=== PATIENT | male | born 1950 | race Two or more races ===

== ENCOUNTER 2019-02-25 13:31 | Emergency (ER) | payer MEDICARE, OTHER ==
[~2019-02-25] VITALS: Ht 175.3 cm; Wt 108.9 kg
[~2019-02-25 13:31] MED LIST: LISI-646; METF-371
[2019-02-25 14:03] VITALS: BP 115/70
[2019-02-25] MEDS ORDERED: KETOROLAC TROMETH 60MG/2ML VIAL IM ONE (15:00)
== END 2019-02-25 15:35 | disposition home or self-care (01) ==
LOC: ER 13:42
DX: G89.29 Other chronic pain (principal); M54.5 Low back pain; M47.816 Spondylosis without myelopathy or radiculopathy, lumbar region
CPT/HCPCS: 72100; 73502; 96372; 99283; J1885

== ENCOUNTER 2019-09-12 17:08 | Emergency (ER) | payer OTHER ==
[~2019-09-12] VITALS: Ht 177.8 cm; Wt 108.9 kg
[2019-09-12 21:18] VITALS: BP 167/72
[2019-09-12] MEDS ORDERED: KETOROLAC TROMETH 60MG/2ML VIAL IM ONE (21:30)
== END 2019-09-12 21:40 | disposition home or self-care (01) ==
LOC: ER 17:08
DX: G89.29 Other chronic pain (principal); M54.9 Dorsalgia, unspecified; M62.838 Other muscle spasm; E11.9 Type 2 diabetes mellitus without complications; I10 Essential (primary) hypertension; Z88.0 Allergy status to penicillin
CPT/HCPCS: 96372; 99283; J1885

== ENCOUNTER 2021-03-03 19:25 | Emergency (ER) | payer OTHER ==
[~2021-03-03] VITALS: Ht 177.8 cm; Wt 106.6 kg
[~2021-03-03 19:25] MED LIST changes: -LISI-646; +LISI20TA28
[2021-03-03 19:26] VITALS: BP 170/50
== END 2021-03-03 21:37 | disposition home or self-care (01) ==
LOC: ER 19:31
DX: M19.012 Primary osteoarthritis, left shoulder (principal); E11.9 Type 2 diabetes mellitus without complications; I10 Essential (primary) hypertension; Z88.0 Allergy status to penicillin
CPT/HCPCS: 73030

== ENCOUNTER 2021-11-19 17:40 | Emergency (ER) | payer OTHER ==
[~2021-11-19] VITALS: Ht 177.8 cm; Wt 94.3 kg
[2021-11-19 19:04] LABS: Basophils # (auto) 0.1 10 ^3/uL (0-0.2); Basophils % (auto) 0.4 % (0.0-2.0); Eosinophils # (auto) 0 10 ^3/uL (0-0.8); Eosinophils % (auto) 0.1 % (0.0-7.0); Hematocrit 44.2 % (41.0-53.0); Hemoglobin 15.1 g/dL (13.5-17.5); Lymphocytes # (auto) 2.6 10 ^3/uL (0.4-5.4); Lymphocytes % (auto) 19.3 % (10.0-50.0); Mean Corpuscular Hemoglobin 28.2 pg (28.0-32.0); Mean Corpuscular Volume 82.8 fL (80.0-100.0); Monocytes # (auto) 0.9 10 ^3/uL (0-1.3); Monocytes % (auto) 6.6 % (0.0-12.0); Neutrophils % (auto) 73.6 % (37.0-80.0); Nucleated Red Blood Cells % 0.1 %; Red Blood Cells 5.34 10^6/uL (4.5-5.90); Red Cell Distribution Width 13.8 % (11.8-14.3); White Blood Cell 13.6 10^3/uL (4.4-10.8)
[2021-11-19 19:17] LABS: Albumin 3.3 g/dL (3.4-5.0); BUN/Creatinine Ratio 8.7; Calcium 8.9 mg/dL (8.5-10.1); Potassium 4.1 mmol/L (3.5-5.1)
[2021-11-19 19:20] LABS: Bilirubin, Total 1.1 mg/dL (0.2-1.0); Total Protein 7.8 g/dL (6.4-8.2)
[2021-11-19] MEDS: DexAMETHasone SOD PHOS 10MG/1ML VIAL INJ IV ONE (19:45)
[2021-11-20 02:06] LABS: Urine Bacteria NONE SEEN /hpf (None Seen); Urine Blood Negative /uL (Negative); Urine Hyaline Cast FEW /lpf (0 - 2); Urine Specific Gravity 1.031 (1.001-1.035); Urine WBC 2 /hpf (0 - 3)
[2021-11-20 03:04] VITALS: BP 156/78
== END 2021-11-20 03:45 | disposition home or self-care (01) ==
LOC: ER 17:40
DX: U07.1 COVID-19 (principal); J18.9 Pneumonia, unspecified organism
CPT/HCPCS: 36415; 71045; 80053; 81001; 85025; 87426; 93005; 96374; 99285; J1100

== ENCOUNTER 2022-04-15 19:10 | Emergency (ER) | payer OTHER ==
[~2022-04-15] VITALS: Ht 177.8 cm; Wt 94.3 kg
[2022-04-15 19:10] VITALS: BP 139/74
[2022-04-15 22:08] LABS: Basophils # (auto) 0.1 10 ^3/uL (0-0.2); Basophils % (auto) 0.8 % (0.0-2.0); Eosinophils # (auto) 0.3 10 ^3/uL (0-0.8); Eosinophils % (auto) 2.2 % (0.0-7.0); Hematocrit 48.4 % (41.0-53.0); Hemoglobin 15.7 g/dL (13.5-17.5); Lymphocytes # (auto) 5.9 10 ^3/uL (0.4-5.4); Lymphocytes % (auto) 47.2 % (10.0-50.0); Mean Corpuscular Hemoglobin 27.9 pg (28.0-32.0); Mean Corpuscular Hgb Conc. 32.4 g/dL (32.0-36.0); Mean Corpuscular Volume 85.9 fL (80.0-100.0); Monocytes # (auto) 0.8 10 ^3/uL (0-1.3); Monocytes % (auto) 6.6 % (0.0-12.0); Neutrophils # (auto) 5.4 10 ^3/uL (1.6-8.6); Neutrophils % (auto) 43.2 % (37.0-80.0); Nucleated Red Blood Cells % 0.1 %; Red Blood Cells 5.63 10^6/uL (4.5-5.90); Red Cell Distribution Width 14.5 % (11.8-14.3); White Blood Cell 12.6 10^3/uL (4.4-10.8)
[2022-04-15 22:26] LABS: Albumin 4.2 g/dL (3.4-5.0); Calcium 9.6 mg/dL (8.5-10.1); Potassium 3.8 mmol/L (3.5-5.1)
[2022-04-15 22:28] LABS: BUN/Creatinine Ratio 12.6
[2022-04-15 22:31] LABS: Bilirubin, Total 0.5 mg/dL (0.2-1.0); Total Protein 8.3 g/dL (6.4-8.2)
[2022-04-15 22:34] LABS: Lactic Acid w/Reflex 4.2 mmol/L (0.4-2.0)
[2022-04-15] MEDS ORDERED: SODIUM CHLORIDE 0.9% 1,000 ML IV ONE (23:15)
[2022-04-15] MEDS ORDERED: LIDO5PAD8 EX (23:36)
== END 2022-04-16 01:38 | disposition home or self-care (01) ==
LOC: ER 19:10
DX: S39.011A Strain of muscle, fascia and tendon of abdomen, initial encounter (principal); E11.9 Type 2 diabetes mellitus without complications; E78.5 Hyperlipidemia, unspecified; I10 Essential (primary) hypertension; Z88.0 Allergy status to penicillin; X58.XXXA Exposure to other specified factors, initial encounter; Y93.89 Activity, other specified; Y92.89 Other specified places as the place of occurrence of the external cause; Y99.8 Other external cause status
CPT/HCPCS: 36415; 74176; 80053; 82150; 83605; 83690; 84484; 85025; 96360; 99284; J7030

== ENCOUNTER 2023-10-22 17:23 | Inpatient (IN) | payer OTHER ==
[~2023-10-22] VITALS: Ht 177.8 cm; Wt 99.1 kg
[~2023-10-22 17:23] MED LIST changes: +LIDO5PAD8 EX; -LISI20TA28; +LISI20TA56
[2023-10-22] MEDS ORDERED: ACETAMINOPHEN 500 MG TAB PO ONE (17:45)
[2023-10-22] MEDS ORDERED: SODIUM CHLORIDE 0.9% 3,600 ML IV ONE (17:45)
[2023-10-22 17:50] VITALS: PULSE 123; RESP 26; O2SAT 95
[2023-10-22] MEDS ORDERED: LORazepam MDV 2MG/ML 10 ML IV ONE (17:57)
[2023-10-22] MEDS ORDERED: LORazepam 2MG/ML-1ML VIAL IV ONE ×2 (18:00→23:00)
[2023-10-22] MEDS ORDERED: ACETAMINOPHEN IV 1000 MG/100ML (10MG/ML) IV ONE (18:00)
[2023-10-22] MEDS ORDERED: levoFLOXacin 750MG 150 ML IV ONE (19:00)
[2023-10-22] MEDS ORDERED: VANCOMYCIN 1GM/200ML 200 ML IV ONE ×2 (19:00→19:45)
[2023-10-22 19:09] LABS: Basophils # (auto) 0.1 10 ^3/uL (0-0.2); Basophils % (auto) 0.5 % (0.0-2.0); Eosinophils # (auto) 0 10 ^3/uL (0-0.8); Eosinophils % (auto) 0.1 % (0.0-7.0); Hematocrit 45.1 % (41.0-53.0); Hemoglobin 14.9 g/dL (13.5-17.5); Lymphocytes # (auto) 1.2 10 ^3/uL (0.4-5.4); Lymphocytes % (auto) 9.3 % (10.0-50.0); Mean Corpuscular Hemoglobin 27.4 pg (28.0-32.0); Mean Corpuscular Hgb Conc. 33.1 g/dL (32.0-36.0); Mean Corpuscular Volume 82.9 fL (80.0-100.0); Monocytes # (auto) 0.4 10 ^3/uL (0-1.3); Monocytes % (auto) 3.1 % (0.0-12.0); Neutrophils # (auto) 11.7 10 ^3/uL (1.6-8.6); Nucleated Red Blood Cells % 0.1 %; Red Blood Cells 5.44 10^6/uL (4.5-5.90); Red Cell Distribution Width 14.2 % (11.8-14.3); White Blood Cell 13.4 10^3/uL (4.4-10.8)
[2023-10-22 19:24] LABS: Urine Epithelial Cast None Seen /hpf (<5)
[2023-10-22 19:26] LABS: INR 1.01 (0.9-1.15); Partial Thromboplastin Time 21.1 SEC (24.5-34.5); Prothrombin Time 10.6 sec (9.3-11.8)
[2023-10-22 19:30] VITALS: PULSE 120; RESP 25; O2SAT 96
[2023-10-22 19:38] LABS: Urine Bacteria NONE SEEN /hpf (None Seen); Urine Blood 1+ /uL (Negative); Urine Clarity Clear (Clear); Urine Color Colorless (Yellow); Urine Protein, UAD 3+ (Negative); Urine Specific Gravity 1.032 (1.001-1.035); Urine Urobilinogen Normal (Negative); Urine WBC 1 /hpf (0 - 3)
[2023-10-22 19:38] LABS: Alanine Aminotransferase 27 U/L (7-40); Alkaline Phosphatase 185 U/L (46-116); Anion Gap 17 (5-15); Aspartate Aminotransferase 21 U/L (13-40); BUN/Creatinine Ratio 13.6 (10.0-20.0); Bilirubin, Total 0.5 mg/dL (0.2-1.0); Blood Urea Nitrogen 15 mg/dL (9-23); Calcium 8.7 mg/dL (8.7-10.4); Carbon Dioxide 20 mmol/L (20-30); Chloride 98 mmol/L (98-107); Glucose 393 mg/dL (74-106); Magnesium 1.7 mg/dL (1.6-2.6); Potassium 4.8 mmol/L (3.5-5.1); Sodium 135 mmol/L (136-145)
[2023-10-22 19:45] LABS: Amphetamine Screen, Urine Neg (NEGATIVE)
[2023-10-22 19:46] LABS: Barbiturate Scree,Urine Neg (NEGATIVE); Benzodiazephine Screen, Urine Neg (NEGATIVE); Cannabinoid Screen, Urine Neg (NEGATIVE); Cocaine Screen, Urine Neg (NEGATIVE); Opiate Scree,Urine Neg (NEGATIVE); Phencyclidine Screen, Urine Neg (NEGATIVE)
[2023-10-22 20:02] LABS: Lactic Acid w/Reflex 2.4 mmol/L (0.4-2.0)
[2023-10-22 20:11] LABS: Blood Alcohol 4.1 mg/dL (<10)
[2023-10-22 20:11] LABS: COVID19 ANTIGEN SOFIA FIA NEGATIVE (NEGATIVE); Rapid Influenza A Negative (Negative); Rapid Influenza B Negative (Negative)
[2023-10-22] MEDS ORDERED: InsuLIN REG 1unit/0.01ml Soln (100units/ml) IV ONE (20:45)
[2023-10-22] MEDS ORDERED: SODIUM CHLORIDE 0.9% 1,000 ML IV SCH (21:00)
[2023-10-22] MEDS ORDERED: DOCUSATE SOD 100 MG CAP PO PRN (21:00)
[2023-10-22] MEDS ORDERED: DEXTROSE (50%) 50ML SYRG IV PRN (21:00)
[2023-10-22] MEDS ORDERED: NITROGLYCERIN 0.4 MG SL TAB SL PRN (21:00)
[2023-10-22] MEDS ORDERED: ONDANSETRON HCL 4 MG/2 ML VIAL IV PRN (21:00)
[2023-10-22] MEDS ORDERED: VANCOMYCIN PER PHARMACY 0 MG IV SCH (21:00)
[2023-10-22] MEDS ORDERED: MORPHINE SULFATE INJ 2 MG/ml SYRG IV PRN (21:00)
[2023-10-22 21:58] LABS: Chloride 95 mmol/L (98-107); Potassium 4.7 mmol/L (3.5-5.1)
[2023-10-22 21:59] LABS: Anion Gap 18 (5-15); Carbon Dioxide 16 mmol/L (20-30)
[2023-10-22 22:00] LABS: Calcium 8.8 mg/dL (8.5-10.1)
[2023-10-22 22:04] LABS: BUN/Creatinine Ratio 9.8 (10.0-20.0); Blood Urea Nitrogen 11 mg/dL (9-23)
[2023-10-22] MEDS ORDERED: hydrALAZINE HCL 20 MG/ML VL IV PRN ×2 (22:15)
[2023-10-22 22:25] LABS: Sodium 129 mmol/L (136-145)
[2023-10-22 22:26] LABS: Glucose 404 mg/dL (74-106)
[2023-10-22] MEDS ORDERED: INSULIN DRIP 100 UNIT/100ML 100 ML IV SCH (23:00)
[2023-10-22] MEDS: hydrALAZINE HCL 20 MG/ML VL IV PRN (23:26)
[2023-10-23] MEDS ORDERED: ACCU-CHEK COMFORT CURVE STRIP VI SCH
[2023-10-23] MEDS ORDERED: InsuLIN REG 1unit/0.01ml Soln (100units/ml) SC SCH
[2023-10-23] MEDS: MAGNESIUM SULFATE 1GM/100ML 100 ML IV SCH ×2 (00:43→01:58)
[2023-10-23 01:05] LABS: Chloride 104 mmol/L (98-107); Potassium 4.5 mmol/L (3.5-5.1)
[2023-10-23 01:06] LABS: Anion Gap 10 (5-15); Carbon Dioxide 21 mmol/L (20-30)
[2023-10-23 01:07] LABS: Calcium 7.7 mg/dL (8.7-10.4)
[2023-10-23 01:11] LABS: BUN/Creatinine Ratio 13.6 (10.0-20.0); Blood Urea Nitrogen 16 mg/dL (9-23); Glucose 363 mg/dL (74-106)
[2023-10-23 01:12] LABS: Sodium 135 mmol/L (136-145)
[2023-10-23] MEDS: ACCU-CHEK COMFORT CURVE STRIP VI SCH ×6 (01:48→18:14)
[2023-10-23] MEDS ORDERED: MAGNESIUM SULFATE 1GM/100ML 100 ML IV ONE (01:57)
[2023-10-23] MEDS ORDERED: LORazepam 2MG/ML-1ML VIAL IV PRN (02:00)
[2023-10-23] MEDS ORDERED: DEXTROSE (50%) 50ML SYRG IV PRN (03:45)
[2023-10-23] MEDS ORDERED: SODIUM CHLORIDE 0.9% 1,000 ML IV SCH (05:00)
[2023-10-23] MEDS ORDERED: VANCOMYCIN 1GM/200ML 200 ML IV ONE (06:00)
[2023-10-23 06:16] LABS: Basophils # (auto) 0.1 10 ^3/uL (0-0.2); Basophils % (auto) 0.4 % (0.0-2.0); Eosinophils # (auto) 0 10 ^3/uL (0-0.8); Eosinophils % (auto) 0.1 % (0.0-7.0); Hematocrit 37.1 % (41.0-53.0); Hemoglobin 12.4 g/dL (13.5-17.5); Lymphocytes # (auto) 3.1 10 ^3/uL (0.4-5.4); Lymphocytes % (auto) 21.6 % (10.0-50.0); Mean Corpuscular Hemoglobin 27.5 pg (28.0-32.0); Mean Corpuscular Hgb Conc. 33.3 g/dL (32.0-36.0); Mean Corpuscular Volume 82.6 fL (80.0-100.0); Monocytes # (auto) 1.5 10 ^3/uL (0-1.3); Monocytes % (auto) 10.4 % (0.0-12.0); Neutrophils # (auto) 9.7 10 ^3/uL (1.6-8.6); Neutrophils % (auto) 67.5 % (37.0-80.0); Nucleated Red Blood Cells % 0.1 %; Red Blood Cells 4.49 10^6/uL (4.5-5.90); Red Cell Distribution Width 14.5 % (11.8-14.3); White Blood Cell 14.3 10^3/uL (4.4-10.8)
[2023-10-23] MEDS: InsuLIN REG 1unit/0.01ml Soln (100units/ml) SC SCH ×3 (06:21→18:14)
[2023-10-23 06:26] LABS: Anion Gap 10 (5-15); Calcium 8.1 mg/dL (8.7-10.4); Carbon Dioxide 23 mmol/L (20-30); Chloride 104 mmol/L (98-107); Potassium 3.9 mmol/L (3.5-5.1); Sodium 137 mmol/L (136-145)
[2023-10-23 06:32] LABS: BUN/Creatinine Ratio 12.3 (10.0-20.0); Blood Urea Nitrogen 16 mg/dL (9-23)
[2023-10-23 06:34] LABS: Glucose 257 mg/dL (74-106)
[2023-10-23 09:30] LABS: Anion Gap 9 (5-15); Carbon Dioxide 22 mmol/L (20-30); Chloride 106 mmol/L (98-107); Potassium 4.2 mmol/L (3.5-5.1); Sodium 137 mmol/L (136-145)
[2023-10-23 09:31] LABS: Calcium 8.3 mg/dL (8.5-10.1)
[2023-10-23 09:36] LABS: BUN/Creatinine Ratio 12.7 (10.0-20.0); Blood Urea Nitrogen 17 mg/dL (9-23); Glucose 290 mg/dL (74-106)
[2023-10-23] MEDS: ENOXAPARIN SOD 40 MG/0.4 ML SYRINGE SC SCH (09:46)
[2023-10-23] MEDS: levoFLOXacin 500MG 100 ML IV SCH (09:47)
[2023-10-23] MEDS ORDERED: VANCOMYCIN PER PHARMACY 0 MG IV SCH (10:00)
[2023-10-23] MEDS ORDERED: hydrALAZINE HCL 20 MG/ML VL IV PRN (10:00)
[2023-10-23] MEDS: SODIUM CHLORIDE 0.9% 1,000 ML IV SCH ×2 (10:02→18:02)
[2023-10-23 13:32] LABS: Chloride 107 mmol/L (98-107); Potassium 4.1 mmol/L (3.5-5.1); Sodium 136 mmol/L (136-145)
[2023-10-23 13:33] LABS: Anion Gap 5 (5-15); Calcium 8.4 mg/dL (8.5-10.1); Carbon Dioxide 24 mmol/L (20-30)
[2023-10-23 13:38] LABS: BUN/Creatinine Ratio 10.9 (10.0-20.0); Blood Urea Nitrogen 14 mg/dL (9-23); Glucose 285 mg/dL (74-106)
[2023-10-23] MEDS: VANCOMYCIN 1GM/200ML 200 ML IV SCH (17:00)
[2023-10-23 17:43] LABS: Anion Gap 6 (5-15); Carbon Dioxide 25 mmol/L (20-30); Chloride 107 mmol/L (98-107); Potassium 3.8 mmol/L (3.5-5.1); Sodium 138 mmol/L (136-145)
[2023-10-23 17:44] LABS: Calcium 8.3 mg/dL (8.5-10.1)
[2023-10-23 17:49] LABS: BUN/Creatinine Ratio 13.2 (10.0-20.0); Blood Urea Nitrogen 15 mg/dL (9-23); Glucose 202 mg/dL (74-106)
[2023-10-23 19:30] VITALS: PULSE 73; RESP 20; O2SAT 99
[2023-10-24] MEDS: ACCU-CHEK COMFORT CURVE STRIP VI SCH ×3 (00:06→12:55)
[2023-10-24] MEDS: ACETAMINOPHEN 325 MG TAB PO PRN ×2 (00:12→06:15)
[2023-10-24] MEDS: InsuLIN REG 1unit/0.01ml Soln (100units/ml) SC SCH ×3 (00:13→12:59)
[2023-10-24] MEDS: hydrALAZINE HCL 20 MG/ML VL IV PRN (02:03)
[2023-10-24] MEDS: SODIUM CHLORIDE 0.9% 1,000 ML IV SCH ×2 (02:05→10:00)
[2023-10-24 02:06] VITALS: PULSE 76; RESP 18; O2SAT 99
[2023-10-24] MEDS: VANCOMYCIN 1GM/200ML 200 ML IV SCH ×2 (03:11→12:55)
[2023-10-24 05:19] VITALS: BP 138/62; PULSE 74; RESP 18; TEMP 98.2; O2SAT 96
[2023-10-24] MEDS ORDERED: LEVO750T8 PO ×3 (07:12→07:14)
[2023-10-24 07:46] LABS: Basophils # (auto) 0 10 ^3/uL (0-0.2); Basophils % (auto) 0.3 % (0.0-2.0); Eosinophils # (auto) 0.2 10 ^3/uL (0-0.8); Eosinophils % (auto) 1.8 % (0.0-7.0); Hematocrit 37.6 % (41.0-53.0); Hemoglobin 12.6 g/dL (13.5-17.5); Lymphocytes # (auto) 2.5 10 ^3/uL (0.4-5.4); Lymphocytes % (auto) 23.1 % (10.0-50.0); Mean Corpuscular Hgb Conc. 33.5 g/dL (32.0-36.0); Mean Corpuscular Volume 83.8 fL (80.0-100.0); Monocytes % (auto) 8.7 % (0.0-12.0); Neutrophils # (auto) 7.2 10 ^3/uL (1.6-8.6); Neutrophils % (auto) 66.1 % (37.0-80.0); Red Blood Cells 4.49 10^6/uL (4.5-5.90); Red Cell Distribution Width 14.9 % (11.8-14.3); White Blood Cell 10.9 10^3/uL (4.4-10.8)
[2023-10-24 08:00] VITALS: PULSE 74; PULSE 75; RESP 19; O2SAT 96
[2023-10-24] MEDS ORDERED: DICY20TA PO (08:39)
[2023-10-24] MEDS ORDERED: SEMA3TAB2 PO (08:40)
[2023-10-24] MEDS ORDERED: GLIP10TA9 PO (08:40)
[2023-10-24] MEDS ORDERED: BENZ100C97 PO (08:41)
[2023-10-24] MEDS ORDERED: METO25TA5 PO (08:41)
[2023-10-24 08:42] LABS: Alanine Aminotransferase 25 U/L (7-40); Albumin 3.2 g/dL (3.2-4.8); Alkaline Phosphatase 114 U/L (46-116); Anion Gap 11 (5-15); Aspartate Aminotransferase 63 U/L (13-40); BUN/Creatinine Ratio 15.4 (10.0-20.0); Blood Urea Nitrogen 14 mg/dL (9-23); Calcium 8.2 mg/dL (8.7-10.4); Carbon Dioxide 21 mmol/L (20-30); Chloride 105 mmol/L (98-107); Glucose 182 mg/dL (74-106); Potassium 3.4 mmol/L (3.5-5.1); Sodium 137 mmol/L (136-145); Total Protein 5.8 g/dL (5.7-8.2)
[2023-10-24] MEDS ORDERED: CLAR1TAB21 PO (08:42)
[2023-10-24] MEDS ORDERED: ATOR20TA PO (08:43)
[2023-10-24] MEDS ORDERED: LOSA25TA15 PO (08:44)
[2023-10-24] MEDS ORDERED: METF-370 PO (08:44)
[2023-10-24] MEDS ORDERED: POTASSIUM CHL 20 Meq TABLET PO ONE (08:45)
[2023-10-24 08:50] LABS: Basophils # (auto) 0.1 10 ^3/uL (0-0.2); Basophils % (auto) 0.5 % (0.0-2.0); Eosinophils # (auto) 0.2 10 ^3/uL (0-0.8); Eosinophils % (auto) 1.7 % (0.0-7.0); Hematocrit 37.5 % (41.0-53.0); Hemoglobin 12.5 g/dL (13.5-17.5); Lymphocytes # (auto) 2.4 10 ^3/uL (0.4-5.4); Mean Corpuscular Hemoglobin 27.7 pg (28.0-32.0); Mean Corpuscular Hgb Conc. 33.3 g/dL (32.0-36.0); Mean Corpuscular Volume 83.2 fL (80.0-100.0); Monocytes # (auto) 0.8 10 ^3/uL (0-1.3); Neutrophils # (auto) 6.9 10 ^3/uL (1.6-8.6); Neutrophils % (auto) 66.8 % (37.0-80.0); Red Blood Cells 4.51 10^6/uL (4.5-5.90); Red Cell Distribution Width 14.6 % (11.8-14.3); White Blood Cell 10.4 10^3/uL (4.4-10.8)
[2023-10-24 08:53] LABS: Chloride 106 mmol/L (98-107); Potassium 3.5 mmol/L (3.5-5.1); Sodium 136 mmol/L (136-145)
[2023-10-24 08:54] LABS: Anion Gap 9 (5-15); Carbon Dioxide 21 mmol/L (20-30)
[2023-10-24 08:55] LABS: Calcium 8.1 mg/dL (8.7-10.4)
[2023-10-24 08:59] LABS: Blood Urea Nitrogen 15 mg/dL (9-23); Glucose 192 mg/dL (74-106)
[2023-10-24 09:04] LABS: Bilirubin, Total 0.3 mg/dL (0.2-1.0)
[2023-10-24 09:11] VITALS: BP 164/65; PULSE 74; RESP 19; TEMP 98; O2SAT 96
[2023-10-24] MEDS: ENOXAPARIN SOD 40 MG/0.4 ML SYRINGE SC SCH (10:16)
[2023-10-24] MEDS: levoFLOXacin 500MG 100 ML IV SCH (10:16)
[2023-10-24 13:00] VITALS: BP 149/78; PULSE 82; RESP 17; TEMP 97.9; O2SAT 98
[2023-10-24 13:58] VITALS: BP 140/67; PULSE 82; RESP 19; TEMP 97.9; O2SAT 94
== END 2023-10-24 15:03 | disposition home health service (06) | DRG 871 ==
LOC: EDBD 17:23 → ER 17:23 → TELE 21:11 → TELE-EAST 10-23 23:53
PROVIDERS: ADMIT Hospitalist; ATTEND Hospitalist
DX: A41.9 Sepsis, unspecified organism (principal); E11.10 Type 2 diabetes mellitus with ketoacidosis without coma; J18.9 Pneumonia, unspecified organism; G93.41 Metabolic encephalopathy; J96.00 Acute respiratory failure, unspecified whether with hypoxia or hypercapnia; N17.9 Acute kidney failure, unspecified; E78.5 Hyperlipidemia, unspecified; I10 Essential (primary) hypertension; Z20.822 Contact with and (suspected) exposure to COVID-19; Z78.1 Physical restraint status; Z88.0 Allergy status to penicillin
CPT/HCPCS: 36415; 36600; 70450; 71045; 71250; 72125; 74176; 80048; 80053; 80202; 80307; 80320; 81001; 82010; 82140; 82805; 82962; 83605; 83735; 83880; 84100; 84443; 84484; 85025; 85610; 85730; 86850; 86900; 86901; 87040; 87426; 87804; 93005; 93306; G0378; J0131; J1815; J1956

== ENCOUNTER 2024-02-19 14:20 | Inpatient (IN) | payer OTHER ==
[~2024-02-19] VITALS: Ht 177.8 cm; Wt 100.2 kg
[~2024-02-19 14:20] MED LIST changes: +ATOR20TA PO; +BENZ100C97 PO; +CLAR1TAB21 PO; +DICY20TA PO; +GLIP10TA9 PO; +LEVO750T8 PO; +LIDO5PAD12 EX; -LIDO5PAD8 EX; +LOSA-533 PO; +METF-370 PO; +METO25TA5 PO; +SEMA3TAB2 PO
[2024-02-19 15:10] VITALS: PULSE 63; RESP 17; O2SAT 97
[2024-02-19 15:49] LABS: Basophils # (auto) 0.1 10 ^3/uL (0-0.2); Basophils % (auto) 1.1 % (0.0-2.0); Eosinophils # (auto) 0.4 10 ^3/uL (0-0.8); Eosinophils % (auto) 3.8 % (0.0-7.0); Hematocrit 43.6 % (41.0-53.0); Hemoglobin 14.5 g/dL (13.5-17.5); Lymphocytes # (auto) 4.1 10 ^3/uL (0.4-5.4); Mean Corpuscular Hemoglobin 27.2 pg (28.0-32.0); Mean Corpuscular Hgb Conc. 33.2 g/dL (32.0-36.0); Monocytes # (auto) 0.5 10 ^3/uL (0-1.3); Monocytes % (auto) 5.4 % (0.0-12.0); Neutrophils # (auto) 4.8 10 ^3/uL (1.6-8.6); Neutrophils % (auto) 48.7 % (37.0-80.0); Nucleated Red Blood Cells % 0.2 %; Red Blood Cells 5.33 10^6/uL (4.5-5.90); Red Cell Distribution Width 14.4 % (11.8-14.3); White Blood Cell 9.9 10^3/uL (4.4-10.8)
[2024-02-19 15:53] LABS: Alanine Aminotransferase 10 U/L (7-40); Alkaline Phosphatase 84 U/L (46-116); Anion Gap 8 (5-15); Aspartate Aminotransferase 20 U/L (13-40); BUN/Creatinine Ratio 13.3 (10.0-20.0); Bilirubin, Total 0.4 mg/dL (0.2-1.0); Blood Urea Nitrogen 16 mg/dL (9-23); Calcium 9.5 mg/dL (8.5-10.1); Carbon Dioxide 25 mmol/L (20-30); Chloride 104 mmol/L (98-107); Glucose 255 mg/dL (74-106); Potassium 3.9 mmol/L (3.5-5.1); Sodium 137 mmol/L (136-145); Total Protein 7.1 g/dL (5.7-8.2)
[2024-02-19 15:57] LABS: Partial Thromboplastin Time 29.2 SEC (24.5-34.5); Prothrombin Time 10.6 sec (9.3-11.8)
[2024-02-19] MEDS: IOHEXOL 350 MG/ML 100ML IJ ONE (16:02)
[2024-02-19] MEDS: ASPirin 325 MG TAB PO ONE (16:45)
[2024-02-19] MEDS: hydrALAZINE HCL 20 MG/ML VL IV ONE (17:48)
[2024-02-19] MEDS ORDERED: NITROGLYCERIN 0.4 MG SL TAB SL PRN (18:15)
[2024-02-19] MEDS ORDERED: MORPHINE SULFATE INJ 2 MG/ml SYRG IV PRN (18:15)
[2024-02-19] MEDS: ATORVASTATIN 20 MG TAB PO ONE (18:39)
[2024-02-19] MEDS: hydrALAZINE HCL 20 MG/ML VL IV PRN (19:59)
[2024-02-19] MEDS: METOPROLOL TARTRATE 25 MG TAB PO ONE (21:36)
[2024-02-19] MEDS: METOPROLOL TARTRATE 25 MG TAB PO SCH (21:43)
[2024-02-19 23:19] VITALS: BP 184/86; PULSE 77; RESP 18; TEMP 98.6; O2SAT 98
[2024-02-20] VITALS (7 sets, daily range): BP systolic 134–187; BP diastolic 78–86; PULSE 67–78; RESP 16–20; TEMP 97.5–98.6; O2SAT 96–98
[2024-02-20] MEDS ORDERED: METF-370 PO (01:28)
[2024-02-20] MEDS ORDERED: IBUP-1456 PO (01:28)
[2024-02-20] MEDS ORDERED: ATOR-507 PO (01:28)
[2024-02-20] MEDS ORDERED: METO-158 PO (01:28)
[2024-02-20 07:05] LABS: Basophils # (auto) 0.1 10 ^3/uL (0-0.2); Basophils % (auto) 0.7 % (0.0-2.0); Eosinophils # (auto) 0.5 10 ^3/uL (0-0.8); Eosinophils % (auto) 5.2 % (0.0-7.0); Hematocrit 42.6 % (41.0-53.0); Lymphocytes # (auto) 2.9 10 ^3/uL (0.4-5.4); Lymphocytes % (auto) 32.4 % (10.0-50.0); Mean Corpuscular Hemoglobin 27.7 pg (28.0-32.0); Mean Corpuscular Hgb Conc. 32.8 g/dL (32.0-36.0); Mean Corpuscular Volume 84.4 fL (80.0-100.0); Monocytes # (auto) 0.6 10 ^3/uL (0-1.3); Monocytes % (auto) 6.6 % (0.0-12.0); Neutrophils # (auto) 4.9 10 ^3/uL (1.6-8.6); Neutrophils % (auto) 55.1 % (37.0-80.0); Nucleated Red Blood Cells % 0.2 %; Red Blood Cells 5.04 10^6/uL (4.5-5.90); Red Cell Distribution Width 14.3 % (11.8-14.3); White Blood Cell 8.9 10^3/uL (4.4-10.8)
[2024-02-20 07:44] LABS: Albumin 3.4 g/dL (3.2-4.8); Alkaline Phosphatase 69 U/L (46-116); Anion Gap 10 (5-15); Aspartate Aminotransferase 24 U/L (13-40); BUN/Creatinine Ratio 10.6 (10.0-20.0); Blood Urea Nitrogen 11 mg/dL (9-23); Carbon Dioxide 21 mmol/L (20-30); Chloride 106 mmol/L (98-107); Glucose 251 mg/dL (74-106); Potassium 3.6 mmol/L (3.5-5.1); Sodium 137 mmol/L (136-145)
[2024-02-20 07:46] LABS: Bilirubin, Total 0.6 mg/dL (0.2-1.0); Total Protein 6.2 g/dL (5.7-8.2)
[2024-02-20 07:47] LABS: Alanine Aminotransferase < 9 U/L (7-40)
[2024-02-20] MEDS: LOSARTAN POTASSIUM 25 MG TAB PO SCH (09:27)
[2024-02-20] MEDS: HYDROcodone-ACET 10/325MG TAB PO ONE (14:11)
[2024-02-20] MEDS ORDERED: DEXTROSE (50%) 50ML SYRG IV PRN (15:00)
[2024-02-20 15:13] LABS: Triglycerides 288 mg/dL (< 150)
[2024-02-20 15:14] LABS: LDL Cholesterol 108 mg/dL (< 100)
[2024-02-20 15:15] LABS: Cholesterol 188 mg/dL (< 200); HDL Cholesterol 38 mg/dL (40-59)
[2024-02-20] MEDS: ACCU-CHEK COMFORT CURVE STRIP VI SCH (16:45)
[2024-02-20] MEDS: InsuLIN REG 1unit/0.01ml Soln (100units/ml) SC SCH (16:47)
[2024-02-20] MEDS: ASPirin 81 mg TAB PO SCH (18:11)
[2024-02-20] MEDS: ATORVASTATIN 20 MG TAB PO SCH (21:21)
[2024-02-21] VITALS (7 sets, daily range): BP systolic 131–192; BP diastolic 56–93; PULSE 66–87; RESP 18–19; TEMP 97.6–98.2; O2SAT 94–98
[2024-02-21] MEDS ORDERED: ASPI-325 PO (09:52)
[2024-02-21] MEDS ORDERED: ATOR-47 PO (09:52)
[2024-02-21] MEDS ORDERED: CLOP75TA28 PO (09:53)
[2024-02-21] MEDS: CLOPIDOGREL BISULFATE 75 MG TAB PO SCH (10:00)
[2024-02-21 13:28] LABS: Magnesium 1.7 mg/dL (1.6-2.6)
[2024-02-22] VITALS (16 sets, daily range): BP systolic 122–205; BP diastolic 69–94; PULSE 68–84; RESP 14–20; TEMP 97.4–98.4; O2SAT 94–100
[2024-02-22 11:55] LABS: Alanine Aminotransferase 11 U/L (7-40); Alkaline Phosphatase 80 U/L (46-116); Anion Gap 6 (5-15); BUN/Creatinine Ratio 10.3 (10.0-20.0); Blood Urea Nitrogen 11 mg/dL (9-23); Calcium 9.3 mg/dL (8.5-10.1); Carbon Dioxide 24 mmol/L (20-30); Chloride 107 mmol/L (98-107); Glucose 261 mg/dL (74-106); Potassium 3.8 mmol/L (3.5-5.1); Sodium 137 mmol/L (136-145)
[2024-02-22 11:56] LABS: Albumin 3.7 g/dL (3.2-4.8); Aspartate Aminotransferase 12 U/L (13-40)
[2024-02-22 11:57] LABS: Bilirubin, Total 0.6 mg/dL (0.2-1.0); Total Protein 6.6 g/dL (5.7-8.2)
[2024-02-22] MEDS: LIDOCAINE VISCOUS 2% 15ML UD PO ONE (12:14)
[2024-02-22] MEDS: MIDAZOLAM HCL 2MG/2ML 2ml VIAL (1mg/ml) IV ONE (12:15)
[2024-02-22] MEDS: fentaNYL CITRATE 100 MCG/2 ML VL IV ONE (12:16)
[2024-02-22] MEDS: MIDAZOLAM HCL 2MG/2ML 2ml VIAL (1mg/ml) ONE (12:20)
[2024-02-22 12:38] LABS: Basophils # (auto) 0.1 10 ^3/uL (0-0.2); Hemoglobin 14.3 g/dL (13.5-17.5); Lymphocytes # (auto) 3.3 10 ^3/uL (0.4-5.4); Mean Corpuscular Hemoglobin 26.8 pg (28.0-32.0); Mean Corpuscular Hgb Conc. 32.7 g/dL (32.0-36.0); Red Blood Cells 5.33 10^6/uL (4.5-5.90); Red Cell Distribution Width 14.3 % (11.8-14.3)
[2024-02-22 12:40] LABS: Basophils % (auto) 0.9 % (0.0-2.0); Eosinophils # (auto) 0.3 10 ^3/uL (0-0.8); Eosinophils % (auto) 2.5 % (0.0-7.0); Hematocrit 43.7 % (41.0-53.0); Lymphocytes % (auto) 30.1 % (10.0-50.0); Mean Corpuscular Volume 82.1 fL (80.0-100.0); Monocytes # (auto) 0.6 10 ^3/uL (0-1.3); Monocytes % (auto) 5.5 % (0.0-12.0); Neutrophils # (auto) 6.6 10 ^3/uL (1.6-8.6); White Blood Cell 10.9 10^3/uL (4.4-10.8)
[2024-02-22] MEDS ORDERED: DEXTROSE (50%) 50ML SYRG IV PRN (14:45)
[2024-02-22] MEDS: INSULIN LANTUS (GLARGINE) 1 /0.01ml (100units/ml) SC ONE (15:00)
[2024-02-22] MEDS ORDERED: METF-370 PO (16:21)
[2024-02-22] MEDS ORDERED: LOSA-535 PO (16:25)
[2024-02-22] MEDS ORDERED: INSU1INJ19 SC (16:42)
[2024-02-22] MEDS ORDERED: INSU100I4 SC (16:50)
[2024-02-22] MEDS ORDERED: BLOO1KIT60 XX (16:51)
[2024-02-22] MEDS ORDERED: INSU32MI9 XX (16:52)
[2024-02-22] MEDS: InsuLIN REG 1unit/0.01ml Soln (100units/ml) SC SCH (17:24)
[2024-02-22] MEDS: ACCU-CHEK COMFORT CURVE STRIP VI SCH (17:24)
[2024-02-22] MEDS ORDERED: InsuLIN REG 1unit/0.01ml Soln (100units/ml) SC SCH (22:00)
== END 2024-02-22 18:45 | disposition home or self-care (01) | DRG 65 ==
LOC: ER 14:20 → TELE 18:19 → TELE-WESTW 22:02 → OBSVTOIN 23:06 → INTOOBSV 23:06 → OBSVTOIN 02-21 23:06
PROVIDERS: ADMIT Student in an Organized Health Care Education/Training Program; ATTEND Student in an Organized Health Care Education/Training Program
PROC: B24BZZ4 Ultrasonography of Heart with Aorta, Transesophageal (ICD-10-PCS; principal; 2024-02-22)
DX: I63.9 Cerebral infarction, unspecified (principal); D84.9 Immunodeficiency, unspecified; G45.3 Amaurosis fugax; G81.94 Hemiplegia, unspecified affecting left nondominant side; E11.9 Type 2 diabetes mellitus without complications; I10 Essential (primary) hypertension; E78.5 Hyperlipidemia, unspecified; F17.200 Nicotine dependence, unspecified, uncomplicated; G89.29 Other chronic pain; R29.705 NIHSS score 5; I70.0 Atherosclerosis of aorta; Z88.0 Allergy status to penicillin; Z79.84 Long term (current) use of oral hypoglycemic drugs; Z83.3 Family history of diabetes mellitus; Z79.899 Other long term (current) drug therapy; Z79.02 Long term (current) use of antithrombotics/antiplatelets; Z79.82 Long term (current) use of aspirin; Z82.49 Family history of ischemic heart disease and other diseases of the circulatory system
CPT/HCPCS: 36415; 70450; 70496; 70551; 71045; 80053; 80061; 82962; 83036; 83735; 83880; 84484; 85025; 85610; 85730; 93005; 93306; 93312; 93886; 96374; 97110; 97116; 97163; 97530; 99152; G0378; J1815; J2250

== ENCOUNTER 2024-02-26 14:38 | Emergency (ER) | payer OTHER ==
[~2024-02-26] VITALS: Ht 180.3 cm; Wt 98.0 kg
[~2024-02-26 14:38] MED LIST changes: +ASPI-325 PO; +ATOR-47 PO; -ATOR20TA PO; -BENZ100C97 PO; +BLOO1KIT60 XX; -CLAR1TAB21 PO; +CLOP75TA28 PO; -DICY20TA PO; +INSU100I4 SC; +INSU1INJ19 SC; +INSU32MI9 XX; -LEVO750T8 PO; -LIDO5PAD12 EX; -LISI20TA56; -LOSA-533 PO; +LOSA-535 PO; -METF-371; +METO-158 PO; -METO25TA5 PO; -SEMA3TAB2 PO
[2024-02-26] MEDS: InsuLIN REG 1unit/0.01ml Soln (100units/ml) SC ONE (15:00)
[2024-02-26] MEDS ORDERED: CLON0.1T PO (15:06)
[2024-02-26 15:52] VITALS: BP 129/67; PULSE 83; RESP 16; TEMP 98.7; O2SAT 97
== END 2024-02-26 15:55 | disposition home or self-care (01) ==
LOC: ER 14:38
DX: E11.65 Type 2 diabetes mellitus with hyperglycemia (principal); I10 Essential (primary) hypertension; E78.5 Hyperlipidemia, unspecified; Z86.73 Personal history of transient ischemic attack (TIA), and cerebral infarction without residual deficits; Z88.0 Allergy status to penicillin; Z79.899 Other long term (current) drug therapy
CPT/HCPCS: 82962

== ENCOUNTER 2024-03-29 18:31 | Emergency (ER) | payer OTHER ==
[~2024-03-29] VITALS: Ht 177.8 cm; Wt 97.8 kg
[~2024-03-29 18:31] MED LIST changes: +CLON0.1T PO
[2024-03-29 19:17] LABS: Basophils # (auto) 0.1 10 ^3/uL (0-0.2); Basophils % (auto) 0.6 % (0.0-2.0); Eosinophils # (auto) 0.3 10 ^3/uL (0-0.8); Eosinophils % (auto) 2.7 % (0.0-7.0); Hematocrit 40.5 % (41.0-53.0); Hemoglobin 13.6 g/dL (13.5-17.5); Lymphocytes # (auto) 4.6 10 ^3/uL (0.4-5.4); Lymphocytes % (auto) 38.1 % (10.0-50.0); Mean Corpuscular Hemoglobin 27.5 pg (28.0-32.0); Mean Corpuscular Hgb Conc. 33.7 g/dL (32.0-36.0); Mean Corpuscular Volume 81.8 fL (80.0-100.0); Monocytes # (auto) 0.7 10 ^3/uL (0-1.3); Monocytes % (auto) 5.6 % (0.0-12.0); Neutrophils # (auto) 6.4 10 ^3/uL (1.6-8.6); Nucleated Red Blood Cells % 0.1 %; Red Blood Cells 4.95 10^6/uL (4.5-5.90); Red Cell Distribution Width 14.6 % (11.8-14.3); White Blood Cell 12.1 10^3/uL (4.4-10.8)
[2024-03-29 19:24] LABS: Chloride 103 mmol/L (98-107); Sodium 139 mmol/L (136-145)
[2024-03-29 19:25] LABS: Anion Gap 11 (5-15); Carbon Dioxide 25 mmol/L (20-30)
[2024-03-29 19:30] LABS: BUN/Creatinine Ratio 14.1 (10.0-20.0); Blood Urea Nitrogen 18 mg/dL (9-23); Glucose 249 mg/dL (74-106)
[2024-03-29 19:49] VITALS: BP 145/67; PULSE 63; RESP 20; O2SAT 98
[2024-03-29 20:22] LABS: Base Excess -0.4 mmol/L (-2.0-2.0)
== END 2024-03-30 00:32 | disposition left against medical advice (07) ==
LOC: ER 18:31
DX: I10 Essential (primary) hypertension (principal); E11.65 Type 2 diabetes mellitus with hyperglycemia; E78.5 Hyperlipidemia, unspecified; Z86.73 Personal history of transient ischemic attack (TIA), and cerebral infarction without residual deficits; Z88.0 Allergy status to penicillin; Z79.899 Other long term (current) drug therapy
CPT/HCPCS: 36415; 36600; 71045; 80048; 82010; 82805; 82962; 83880; 84484; 85025

== ENCOUNTER 2024-12-05 17:27 | Inpatient (IN) | payer MEDICARE, OTHER ==
[~2024-12-05] VITALS: Ht 177.8 cm; Wt 111.1 kg
--- NOTE | 2024-12-05 18:13 | ED.PDOC ---
HPI Comments [place]: HPI: Poor Historian. HPI: 74 y/o M, presents to the ED for CC of dyspnea and leg swelling and hypertension. Patient states, that he went to 's walk-in clinic today for bilateral leg swelling and symptoms of shortness of breath when he was relayed to the ED for a further evaluation due to his hypertension. Patient's blood pressure at 's walk in clinic read at 210/80. Patient comments on, forgetting to take his blood medication this morning and is non-compliant with his diuretics. Patient's blood sugar reading in triage read at 424 and 416. Patient denies fatigue, weakness, nausea, vomiting, or diarrhea. No other symptoms or modifying factors at this time. Initial Vital Signs: Temp : 98.3 BP: 200/83 HR:87 RR: 20 SpO2: 97 Past Medical History: AL, CVA, DM, HTN, LIPIDS Past Surgical History: KNEES Social History: Denies smoking, ETOH, or drug use. Medications: PLAVIX METFORMIN' ATROVASTIN ALIPIZIDE CLONIDINE INSULIN LOSARTAN ASA 81 Allergies: NKDA REVIEW OF SYSTEMS: CONSTITUTIONAL: Denies acute: fever, diaphoresis, chills, HEAD: Denies acute: headache, photophobia Eyes: Denies acute: Double vision, vision loss, eye pain, eye discharge. EARS: Denies acute: tinnitus, hearing loss, ear discharge, ear pain, THROAT: Denies acute: sore throat, swelling, difficulty swallowing , pain with swallowing, change in voice. NECK: Denies acute: neck pain, neck swelling, stiff neck. HEART: Denies acute : chest pain, palpitations, LUNGS: Denies acute: , wheezing, cough, hemoptysis ABDOMEN: Denies acute: abdominal pain, Nausea, Vomiting, diarrhea, melena , hematemesis, hematochezia SKIN: Denies acute: rash, redness, lesions, itchiness. EXTREMITIES: Denies acute: calf pain, numbness, tingling, weakness, denies pain in extremity. Denies acute: Low back pain. Neuro: Denies acute: focal neurological deficit, motor or sensory focal neurological deficit, tremors, seizure like activity, confusion, dizziness, change in mental status, loss of bowel or bladder function, cauda equina like symptoms. : Denies acute: dysuria, hematuria, flank pain, increase in urinary frequency. PSYCH: Denies acute: hallucination, suicidal ideation, homicidal ideation. PHYSICAL EXAM: General: no acute distress, awake and alert. Head: normocephalic, atraumatic. Neck: supple, trachea is midline, no swelling. Throat: Normal phonation. Eyes:, no erythema, no purulent discharge, no proptosis, no icterus. Heart: regular rate, regular rhythm, no significant murmur appreciated. Lungs: no apparent respiratory distress, Able to speak in full sentences. No wheezing, no rhonchi, no crackles. No stridors Clear to auscultation bilaterally. Abdomen: non tender to palpation, non distended, soft, no guarding, no rebound, + bowel sounds. Neuro: Awake, Alert, oriented to name, self, situation, follows commands GCS=15. Speech is normal. Skin: no petechia, no purpura, no cyanosis, non-pale, not jaundice. Lower extremities: --3/4 - Pitting edema no deformity, no focal swelling, no calf TTP. Makes eye contact. moves all four extremities. Face: no apparent facial droop. Ambulating in the ED independently. ED COURSE: Chief Complaint: High Blood Pressure Time Seen by MD: 17:54 Primary Care Provider: Sangeeta Reviewed Notes: Nurses Notes, Medications, Allergies Allergies: Coded Allergies: Penicillins (Verified Allergy, Unknown, 09/12/19) Home Meds Active Scripts Clonidine Hydrochloride (Clonidine Hcl) 0.1 Mg Tab, 0.1 MG PO DAILY for 7 Days, #7 MG Prov:MASSIEL GONZALEZ MD 02/26/24 Insulin Pen Needle (Bd Pen Needle/Yahaira/Ultra) 32 Gx4mm Mis, GX4MM XX, #100 3 Refills Prov:JORGE ARROYO DO 02/22/24 Blood Glucose Monitoring Suppl (D-Care Glucometer Kit/Glu W/Device) 1 Kit Kit, KIT XX, #1 Prov:JORGE ARROYO DO 02/22/24 Insulin Lispro (Humalog Kwikpen) 100 Unit/Ml Inj, 100 UNIT SC tid ac for 30 Days, #1 INJ 1 Refill Take 3 units prior to each meal (3x per day, breakfast, lunch, dinner). Do not take if blood sugar less than 130. Prov:JORGE ARROYO DO 02/22/24 Insulin Glargine (Basaglar Kwikpen) 100 Unit/Ml Inj, 100 UNIT SC QHSP PRN for 30 Days, #5 UNIT 2 Refills Inject 5 units glargine at bedtime. Prov:JORGE ARROYO DO 02/22/24 Losartan Potassium (Losartan Potassium) 100 Mg Tab, 1 TAB PO DAILY, #90 TAB 1 Refill Prov:JORGE ARROYO DO 02/22/24 Metformin Hydrochloride (Metformin Hcl) 500 Mg Tab, 1000 MG PO BIDAC for 90 Days, #90 TAB 2 Refills Prov:JORGE ARROYO DO 02/22/24 Clopidogrel Bisulfate (Plavix) 75 Mg Tab, 75 MG PO DAILY for 20 Days, #20 TAB 0 Refills Start taking on 02/21. Prov:JORGE ARROYO DO 02/21/24 Atorvastatin Calcium (ATORVASTATIN CALCIUM) 80 Mg Tab, 80 MG PO DAILY for 90 Days, #90 TAB 2 Refills Prov:JORGE ARROYO DO 02/21/24 Aspirin (Aspirin Low Dose) 81 Mg Tab, 81 MG PO DAILY for 90 Days, #90 TAB 3 Refills Prov:JORGE ARROYO DO 02/21/24 Reported Medications Metoprolol Tartrate (Metoprolol Tartrate) 50 Mg Tab, 50 MG PO BID for 30 Days, MG 02/20/24 Glipizide (Glipizide) 10 Mg Tab, 1 TAB PO BID, #60 TAB 5 Refills 10/24/23 Information Source: Patient Mode of Arrival: Ambulatory Severity: Moderate Timing: Hours Duration: Since onset Prehospital treatment: None (C) Cardiac Risk Factors: None PE Risk Factors: None History of: None Associated Signs and Symptoms: None Was a procedure done? Was a procedure done?: No CP Differential Dx Differential Diagnosis: N/A Differential Diagnosis: Other (DDx include ACS, unstable angina, anxiety, PE, pneumothroax, neoplasm, cardiac ischemia, COPD, asthma, CHF, pleural effusion, tobacco abuse, pneumonia, hypoxia, hypercapnia, anemia., infection/sepsis., pulmonary edema. Asthma, Cardiac tamponade, infection.) Differential Diagnosis: Other (Leg swellingDdx include but not limited to DVT, ischemic limb, pitting edema, volume overload, CHF, cellulitis, hematoma, compartment syndrome, dependent edema, venous stasis.) X-Ray, Labs, Meds, VS Vital Signs Date Time Temp Pulse Resp B/P (MAP) Pulse Ox O2 Delivery O2 Flow Rate FiO2 12/05/24 17:45 81 12/05/24 17:38 98.3 87 20 200/83 (122) 97 204/141 (162) Lab Test 12/05/24 19:15 12/05/24 19:01 12/05/24 18:20 12/05/24 17:44 Range/Units Troponin I High Sensitivity 14 15 </=54 ng/L Urine Color Light-yellow Yellow Urine Clarity Clear Clear Urine pH 6.0 5.0-9.0 Urine Specific [place] 1.034 1.001-1.035 Urine Protein 3+ H Negative Urine Ketones Negative Negative Urine Blood 1+ H Negative /uL Urine Nitrite Negative Negative Urine Bilirubin Negative Negative Urine Urobilinogen Normal Negative mg/dL Urine Leukocyte Esterase Negative Negative /uL Urine RBC 3 0 - 3 /hpf Urine Microscopic WBC 3 0-3 /HPF Urine Squamous Epithelial Cells None seen <5 /hpf Urine Bacteria None seen None Seen /hpf Urine Yeast (Budding) Occasional None Seen /hpf Urine Glucose 4+ H Normal mg/dL White Blood Count 8.7 4.4-10.8 10^3/uL Red Blood Count 4.66 4.5-5.90 10^6/uL Hemoglobin 13.0 L 13.5-17.5 g/dL Hematocrit 39.3 L 41.0-53.0 % Mean Corpuscular Volume 84.3 80.0-100.0 fL Mean Corpuscular Hemoglobin 28.0 28.0-32.0 pg Mean Corpuscular Hemoglobin Concent 33.2 32.0-36.0 g/dL Red Cell Distribution Width 14.9 H 11.8-14.3 % Platelet Count 269 140-450 10^3/uL Mean Platelet Volume 9.3 6.9-10.8 fL Neutrophils (%) (Auto) 56.4 37.0-80.0 % Lymphocytes (%) (Auto) 33.2 10.0-50.0 % Monocytes (%) (Auto) 6.3 0.0-12.0 % Eosinophils (%) (Auto) 3.0 0.0-7.0 % Basophils (%) (Auto) 1.1 0.0-2.0 % Neutrophils # (Auto) 4.9 1.6-8.6 10 ^3/uL Lymphocytes # (Auto) 2.9 0.4-5.4 10 ^3/uL Monocytes # (Auto) 0.5 0-1.3 10 ^3/uL Eosinophils # (Auto) 0.3 0-0.8 10 ^3/uL Basophils # (Auto) 0.1 0-0.2 10 ^3/uL Nucleated Red Blood Cells 0.1 % Sodium Level 139 136-145 mmol/L Potassium Level 3.0 L 3.5-5.1 mmol/L Chloride Level 102 98-107 mmol/L Carbon Dioxide Level 27 20-31 mmol/L Anion Gap 10 5-15 Blood Urea Nitrogen 13 9-23 mg/dL Creatinine 1.62 H 0.700-1.30 mg/dL Glomerular Filtration Rate Calc 44 >90 mL/min BUN/Creatinine Ratio 8.0 L 10.0-20.0 Serum Glucose 437 *H 74-106 mg/dL Calcium Level 9.0 8.7-10.4 mg/dL Total Bilirubin 0.5 0.2-1.0 mg/dL Aspartate Amino Transferase (AST) 18 13-40 U/L Alanine Aminotransferase (ALT) 19 7-40 U/L Alkaline Phosphatase 138 H 46-116 U/L B-Type Natriuretic Peptide 168.91 0-100 pg/mL Total Protein 6.5 5.7-8.2 g/dL Albumin 4.0 3.2-4.8 g/dL POC Glucose 416 *H 70-106 mg/dl Test 12/05/24 17:42 Range/Units POC Glucose 424 *H 70-106 mg/dl [address] [address] Ph: [phone] DIAGNOSTIC IMAGING Diagnostic Imaging Report : [id number] Signed PATIENT: KARO VAN ACCT: [id number] UNIT: [id number] : 1950 LOC: ER ROOM / BED: / AGE / SEX: 74 / M ADM STATUS: REG ER SERVICE 1801 ORDERING PHYSICIAN: GIANNA ALCARAZ DO PROCEDURE(s): CXRP - CHEST PORTABLE REASON: HTN AND SOB ORDER NUMBER(s): [id number], ACCESSION NUMBER(s): [id number] CHEST RADIOGRAPH Indication: HTN AND SOB Technique: Single frontal view of the chest was obtained Comparison: XY CHEST XRAY 1 VIEW on DOS: 03/29/24, XY CHEST XRAY 1 VIEW on DOS: 02/19/24, XY CHEST PORTABLE on DOS: 10/22/23 FINDINGS: Lines and Tubes: None Lungs: Small left pleural effusion Pleura: No effusion. No pneumothorax. Cardiomediastinal contours: Unremarkable Bones: No acute osseous abnormality. IMPRESSION: 1. Interval development of a small left pleural effusion. ATED BY: JONI ANDERSON Jr., DO DICTATED DATE/TIME: 12/05/241856 SIGNED BY: JONI ANDERSON Jr., SIGNED DATE/TIME: 12/05/241856 CC: Time of 1ST Reevaluation: 18:24 Reevaluation 1ST: Unchanged Time of 2ND Reevaluation: 19:51 (The case was discussed with the admitting team (HPI, physical exam, labs and diagnostic tests that were available at the time of disposition, ED course, treatment plan) on the phone. They agreed to admit the patient to their service and assume care of this patient from this point forward. --- Sae) Patient Education/Counseling: Diagnosis, Treatment Family Education/Counseling: No Family Present Comments Patient presented with the above HPI.---dyspnea and hypertension---workup was initiated. patient was found with the above mentioned diagnosis. the following medications were ordered: FUROSEMIDE INJECTION, NITROGLYCERIN SUBLINGUAL , potassium was replaced. please refer to order lists of meds and tests obtained by myself Dr. Alcaraz. Patient ED course and VS have been stabilized. Patient has been reassessed in the ED and remained in a stable condition. Pertinent incidental findings were discussed with the patient and/or family. Patient/family voices understanding and is agreeable with plan. Patient has been observed in the ED adequate length of time to insure improv ement/stability. Escalation of care considered: Consideration of escalation to observation or admission Patient was ADMITTED to the medicine team for further evaluation and treatment of their presentation. All the reports of any imaging studies that were ordered by myself were reviewed by myself. Departure 1 Departure Time of Disposition: 18:15 Impression: Primary Impression: CHF exacerbation Additional Impressions: Hypertensive crisis Pleural effusion Pitting edema Noncompliance with medication regimen Hypokalemia Disposition: ADMITTED INPATIENT Admit to: Tele Condition: Guarded Additional Instructions: [place] [address] Ph: [phone] DIAGNOSTIC IMAGING Diagnostic Imaging Report : [id number] Signed PATIENT: KARO VAN ACCT: [id number] UNIT: [id number] : 1950 LOC: ER ROOM / BED: / AGE / SEX: 74 / M ADM STATUS: REG ER SERVICE 00 ORDERING PHYSICIAN: GIANNA ALCARAZ DO PROCEDURE(s): CXRP - CHEST PORTABLE REASON: HTN AND SOB ORDER NUMBER(s): [id number], ACCESSION NUMBER(s): [id number] CHEST RADIOGRAPH Indication: HTN AND SOB Technique: Single frontal view of the chest was obtained Comparison: XY CHEST XRAY 1 VIEW on DOS: 03/29/24, XY CHEST XRAY 1 VIEW on DOS: 02/19/24, XY CHEST PORTABLE on DOS: 10/22/23 FINDINGS: Lines and Tubes: None Lungs: Small left pleural effusion Pleura: No effusion. No pneumothorax. Cardiomediastinal contours: Unremarkable Bones: No acute osseous abnormality. IMPRESSION: 1. Interval development of a small left pleural effusion. ATED BY: JONI ANDERSON Jr., DO DICTATED DATE/TIME: 12/05/241856 SIGNED BY: JONI ANDERSON Jr., DO SIGNED DATE/TIME: 12/05/241856 CC: Discharged With: Self Critical Care Note Critical Care Time?: Yes (35 min-critical care time only) Heart Score Heart Score: Heart Score Response (Comments) Value History Slightly Suspicious 0 EKG Normal 0 Age >65 2 Risk Factors >3 or Hx ASHD 2 Troponin Normal limit 0 Total 4 I personally scribed for GIANNA ALCARAZ DO ([email or web address]) on 12/05/24 at 18:13. Electronically submitted by Asiya Schmid ([email or web address]). I personally scribed for GIANNA ALCARAZ DO ([email or web address]) on 12/05/24 at 20:05. Electronically submitted by Asiya Schmid ([email or web address]). I personally scribed for GIANNA ALCARAZ DO ([email or web address]) on 12/05/24 at 20:21. Electronically submitted by Asiya Schmid ([email or web address]). GIANNA ALCARAZ DO Dec 05, 2024 18:13
[2024-12-05 18:51] LABS: Basophils # (auto) 0.1 10 ^3/uL (0-0.2); Basophils % (auto) 1.1 % (0.0-2.0); Eosinophils # (auto) 0.3 10 ^3/uL (0-0.8); Hematocrit 39.3 % (41.0-53.0); Lymphocytes # (auto) 2.9 10 ^3/uL (0.4-5.4); Lymphocytes % (auto) 33.2 % (10.0-50.0); Mean Corpuscular Hgb Conc. 33.2 g/dL (32.0-36.0); Mean Corpuscular Volume 84.3 fL (80.0-100.0); Monocytes # (auto) 0.5 10 ^3/uL (0-1.3); Monocytes % (auto) 6.3 % (0.0-12.0); Neutrophils # (auto) 4.9 10 ^3/uL (1.6-8.6); Neutrophils % (auto) 56.4 % (37.0-80.0); Nucleated Red Blood Cells % 0.1 %; Platelet Count (auto) 269 10^3/uL (140-450); Red Blood Cells 4.66 10^6/uL (4.5-5.90); Red Cell Distribution Width 14.9 % (11.8-14.3); White Blood Cell 8.7 10^3/uL (4.4-10.8)
--- NOTE | 2024-12-05 18:59 | DVH ---
CHEST RADIOGRAPH Indication: HTN AND SOB Technique: Single frontal view of the chest was obtained Comparison: XY CHEST XRAY 1 VIEW on DOS: 03/29/24, XY CHEST XRAY 1 VIEW on DOS: 02/19/24, XY CHEST NAMRATA BLE on DOS: 10/22/23 FINDINGS: Lines and Tubes: None Lungs: Small left pleural effusion Pleura: No effusion. No pneumothorax. Cardiomediastinal contours: Unremarkable Bones: No acute osseous abnormality. IMPRESSION: 1. Interval development of a small left pleural effusion.
[2024-12-05 19:02] LABS: Urine Bacteria None Seen /hpf (None Seen)
[2024-12-05 19:26] LABS: Alanine Aminotransferase 19 U/L (7-40); Anion Gap 10 (5-15); Aspartate Aminotransferase 18 U/L (13-40); Bilirubin, Total 0.5 mg/dL (0.2-1.0); Blood Urea Nitrogen 13 mg/dL (9-23); Carbon Dioxide 27 mmol/L (20-31); Chloride 102 mmol/L (98-107); Sodium 139 mmol/L (136-145); Total Protein 6.5 g/dL (5.7-8.2)
[2024-12-05 19:28] LABS: Alkaline Phosphatase 138 U/L (46-116)
[2024-12-05 19:30] LABS: Glucose 437 mg/dL (74-106)
[2024-12-05] MEDS ORDERED: NITROGLYCERIN 0.4 MG SL TAB SL PRN (20:00)
[2024-12-05] MEDS ORDERED: MORPHINE SULFATE INJ 2 MG/ml SYRG IV PRN (20:00)
[2024-12-05] MEDS ORDERED: DEXTROSE (50%) 50ML SYRG IV PRN (20:00)
[2024-12-05 20:10] LABS: Urine Blood 1+ /uL (Negative); Urine Budding Yeast OCCASIONAL /hpf (None Seen); Urine Clarity Clear (Clear); Urine Color Light-Yellow (Yellow); Urine Protein, UAD 3+ (Negative); Urine Specific Gravity 1.034 (1.001-1.035); Urine Squamous Epithelial Cell None Seen /hpf (<5); Urine Urobilinogen Normal (Negative); Urine WBC 3 /HPF (0-3)
[2024-12-06 01:16] VITALS: PULSE 69; RESP 18; O2SAT 98
[2024-12-06] MEDS: ACCU-CHEK COMFORT CURVE STRIP VI SCH (01:27)
[2024-12-06] MEDS: InsuLIN REG 1unit/0.01ml Soln (100units/ml) SC SCH ×2 (01:52→06:34)
[2024-12-06] MEDS: hydrALAZINE HCL 25 MG TAB PO PRN (01:55)
[2024-12-06] MEDS: POTASSIUM CHL 20 Meq TABLET PO ONE (01:55)
[2024-12-06] MEDS: FUROSEMIDE 100 MG/10ML VIAL IV ONE (01:56)
[2024-12-06] MEDS: NITROGLYCERIN 0.4 MG SL TAB SL ONE (02:03)
[2024-12-06] MEDS: FUROSEMIDE 40 MG/4 ML VIAL IV SCH (02:37)
[2024-12-06 03:04] LABS: Basophils # (auto) 0.1 10 ^3/uL (0-0.2); Basophils % (auto) 1.2 % (0.0-2.0); Eosinophils # (auto) 0.4 10 ^3/uL (0-0.8); Eosinophils % (auto) 4.2 % (0.0-7.0); Hematocrit 39.3 % (41.0-53.0); Hemoglobin 13.2 g/dL (13.5-17.5); Lymphocytes # (auto) 3.1 10 ^3/uL (0.4-5.4); Lymphocytes % (auto) 33.3 % (10.0-50.0); Mean Corpuscular Hemoglobin 27.9 pg (28.0-32.0); Mean Corpuscular Hgb Conc. 33.6 g/dL (32.0-36.0); Mean Corpuscular Volume 83.1 fL (80.0-100.0); Monocytes # (auto) 0.7 10 ^3/uL (0-1.3); Monocytes % (auto) 7.3 % (0.0-12.0); Nucleated Red Blood Cells % 0.1 %; Platelet Count (auto) 246 10^3/uL (140-450); Red Blood Cells 4.74 10^6/uL (4.5-5.90); Red Cell Distribution Width 14.9 % (11.8-14.3); White Blood Cell 9.2 10^3/uL (4.4-10.8)
[2024-12-06 03:24] LABS: Alanine Aminotransferase 19 U/L (7-40); Albumin 3.9 g/dL (3.2-4.8); Alkaline Phosphatase 116 U/L (46-116); Anion Gap 9 (5-15); Aspartate Aminotransferase 18 U/L (13-40); BUN/Creatinine Ratio 8.8 (10.0-20.0); Bilirubin, Total 0.7 mg/dL (0.2-1.0); Blood Urea Nitrogen 14 mg/dL (9-23); Calcium 8.7 mg/dL (8.7-10.4); Carbon Dioxide 28 mmol/L (20-31); Chloride 103 mmol/L (98-107); Sodium 140 mmol/L (136-145); Total Protein 6.4 g/dL (5.7-8.2)
[2024-12-06 03:25] LABS: Glucose 396 mg/dL (74-106); Potassium 2.8 mmol/L (3.5-5.1)
[2024-12-06 04:30] VITALS: PULSE 80; RESP 20; O2SAT 98
--- NOTE | 2024-12-06 06:28 | DVHHP2 ---
Admitting Diagnosis: HTN urgency CHF exacerbation History of Present Illness HPI 74 y.o. male with HTN, DM, obesity, h/o CVA and medication nonadherence was referred from his PMD to the ED c/o worsening leg edema and SOB. His BP today at his PMDs office was 210/80 and in the ER 200/80. His BG on arrival was over 400. Patient admitted that he has not been taking his BP medications, his Lasix or DM medications. Home Meds Active Scripts Clonidine Hydrochloride (Clonidine Hcl) 0.1 Mg Tab, 0.1 MG PO DAILY for 7 Days, #7 MG Prov:MASSIEL GONZALEZ MD 02/26/24 Insulin Pen Needle (Bd Pen Needle/Yahaira/Ultra) 32 Gx4mm Mis, GX4MM XX, #100 3 Refills Prov:JORGE ARROYO DO 02/22/24 Blood Glucose Monitoring Suppl (D-Care Glucometer Kit/Glu W/Device) 1 Kit Kit, KIT XX, #1 Prov:JORGE ARROYO DO 02/22/24 Insulin Lispro (Humalog Kwikpen) 100 Unit/Ml Inj, 100 UNIT SC tid ac for 30 Days, #1 INJ 1 Refill Take 3 units prior to each meal (3x per day, breakfast, lunch, dinner). Do not take if blood sugar less than 130. Prov:JORGE ARROYO DO 02/22/24 Insulin Glargine (Basaglar Kwikpen) 100 Unit/Ml Inj, 100 UNIT SC QHSP PRN for 30 Days, #5 UNIT 2 Refills Inject 5 units glargine at bedtime. Prov:JORGE ARROYO DO 02/22/24 Losartan Potassium (Losartan Potassium) 100 Mg Tab, 1 TAB PO DAILY, #90 TAB 1 Refill Prov:JORGE ARROYO DO 02/22/24 Metformin Hydrochloride (Metformin Hcl) 500 Mg Tab, 1000 MG PO BIDAC for 90 Days, #90 TAB 2 Refills Prov:JORGE ARROYO DO 02/22/24 Clopidogrel Bisulfate (Plavix) 75 Mg Tab, 75 MG PO DAILY for 20 Days, #20 TAB 0 Refills Start taking on 02/21. Prov:JORGE ARROYO DO 02/21/24 Atorvastatin Calcium (ATORVASTATIN CALCIUM) 80 Mg Tab, 80 MG PO DAILY for 90 Days, #90 TAB 2 Refills Prov:JORGE ARROYO DO 02/21/24 Aspirin (Aspirin Low Dose) 81 Mg Tab, 81 MG PO DAILY for 90 Days, #90 TAB 3 Refills Prov:JORGE ARROYO DO 02/21/24 Reported Medications Metoprolol Tartrate (Metoprolol Tartrate) 50 Mg Tab, 50 MG PO BID for 30 Days, MG 02/20/24 Glipizide (Glipizide) 10 Mg Tab, 1 TAB PO BID, #60 TAB 5 Refills 10/24/23 Past Medical History Cardiac: CHF, HTN Central Nervous System: CVA Endocrine: NIDDM Patient Family History: Diabetes mellitus G8 MOTHER G8 FATHER Review of Systems Pulmonary/Respiratory: Dyspnea Cardiovascular: Edema H&P Exam Vital Signs Vital Signs Date Time Temp Pulse Resp B/P (MAP) Pulse Ox O2 Delivery O2 Flow Rate FiO2 12/06/24 05:25 200/92 12/06/24 05:00 80 18 99 12/06/24 04:30 Room Air* 0 21 12/06/24 01:16 98.7 98.7 General Appeara: Obese Head Exam: Normal inspection Neck Exam: Normal inspection Eye Exam: bilateral eye PERRL, bilateral eye EOMI Pulmonary/Respiratory: Crackles Cardiovascular/Chest: Normal Rhythm Abdominal Exam: No tenderness Legs: bilateral leg swelling Ankle Exam: bilateral ankle Swelling Foot: bilateral foot swelling Neuro/Mental St: Alert, Oriented Labs/Xrays Labs Test 12/06/24 02:40 12/06/24 01:25 12/05/24 21:18 12/05/24 19:01 Range/Units White Blood Count 9.2 4.4-10.8 10^3/uL Red Blood Count 4.74 4.5-5.90 10^6/uL Hemoglobin 13.2 L 13.5-17.5 g/dL Hematocrit 39.3 L 41.0-53.0 % Mean Corpuscular Volume 83.1 80.0-100.0 fL Mean Corpuscular Hemoglobin 27.9 L 28.0-32.0 pg Mean Corpuscular Hemoglobin Concent 33.6 32.0-36.0 g/dL Red Cell Distribution Width 14.9 H 11.8-14.3 % Platelet Count 246 140-450 10^3/uL Mean Platelet Volume 9.2 6.9-10.8 fL Neutrophils (%) (Auto) 54.0 37.0-80.0 % Lymphocytes (%) (Auto) 33.3 10.0-50.0 % Monocytes (%) (Auto) 7.3 0.0-12.0 % Eosinophils (%) (Auto) 4.2 0.0-7.0 % Basophils (%) (Auto) 1.2 0.0-2.0 % Neutrophils # (Auto) 5.0 1.6-8.6 10 ^3/uL Lymphocytes # (Auto) 3.1 0.4-5.4 10 ^3/uL Monocytes # (Auto) 0.7 0-1.3 10 ^3/uL Eosinophils # (Auto) 0.4 0-0.8 10 ^3/uL Basophils # (Auto) 0.1 0-0.2 10 ^3/uL Nucleated Red Blood Cells 0.1 % Sodium Level 140 136-145 mmol/L Potassium Level 2.8 L 3.5-5.1 mmol/L Chloride Level 103 98-107 mmol/L Carbon Dioxide Level 28 20-31 mmol/L Anion Gap 9 5-15 Blood Urea Nitrogen 14 9-23 mg/dL Creatinine 1.59 H 0.700-1.30 mg/dL Glomerular Filtration Rate Calc 45 >90 mL/min BUN/Creatinine Ratio 8.8 L 10.0-20.0 Serum Glucose 396 H 74-106 mg/dL Calcium Level 8.7 8.7-10.4 mg/dL Total Bilirubin 0.7 0.2-1.0 mg/dL Aspartate Amino Transferase (AST) 18 13-40 U/L Alanine Aminotransferase (ALT) 19 7-40 U/L Alkaline Phosphatase 116 46-116 U/L Total Protein 6.4 5.7-8.2 g/dL Albumin 3.9 3.2-4.8 g/dL POC Glucose 350 H 70-106 mg/dl Troponin I High Sensitivity 17 </=54 ng/L Urine Color Light-yellow Yellow Urine Clarity Clear Clear Urine pH 6.0 5.0-9.0 Urine Specific [place] 1.034 1.001-1.035 Urine Protein 3+ H Negative Urine Ketones Negative Negative Urine Blood 1+ H Negative /uL Urine Nitrite Negative Negative Urine Bilirubin Negative Negative Urine Urobilinogen Normal Negative mg/dL Urine Leukocyte Esterase Negative Negative /uL Urine RBC 3 0 - 3 /hpf Urine Microscopic WBC 3 0-3 /HPF Urine Squamous Epithelial Cells None seen <5 /hpf Urine Bacteria None seen None Seen /hpf Urine Yeast (Budding) Occasional None Seen /hpf Urine Glucose 4+ H Normal mg/dL Test 12/05/24 18:20 Range/Units B-Type Natriuretic Peptide 168.91 0-100 pg/mL Assessment/Plan Problem List: (1) CHF exacerbation (2) Hypertensive urgency (3) Noncompliance with medication regimen (4) Hyperglycemia due to type 2 diabetes mellitus (5) Uncontrolled diabetes mellitus (6) Pleural effusion Plan Lasix, Clonidine, Metoprolol, Hydralazine, Insulin, ECHO, Cardiology consult Plan discussed with: Patient LLOYD WATTERS MD Dec 06, 2024 06:28
--- NOTE | 2024-12-06 06:31 | ECG ---
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
[2024-12-06 07:30] VITALS: PULSE 94; RESP 12; O2SAT 95
[2024-12-06] MEDS: cloNIDine HCL 0.1 MG TAB PO ONE (07:54)
[2024-12-06] MEDS: hydrALAZINE HCL 20 MG/ML VL IV PRN (07:55)
[2024-12-06] MEDS: METOPROLOL TARTRATE 1MG/1ML-5ML VIAL IV ONE (07:56)
[2024-12-06] MEDS: METOPROLOL TARTRATE 50 MG TAB PO SCH (10:47)
--- NOTE | 2024-12-06 11:41 | DVHPN2 ---
Changes from previous H/P or p: No Changes Objective Vitals Vital Signs Date Time Temp Pulse Resp B/P (MAP) Pulse Ox O2 Delivery O2 Flow Rate FiO2 12/06/24 11:29 80 14 145/56 (85) 93 12/06/24 04:30 Room Air* 0 21 12/06/24 01:16 98.7 98.7 Medications Current Medications Medications Dose Ordered Sig/Peter Route Start Time Stop Time Status Last Admin Dose Admin Nitroglycerin 0.4 mg Q5MINP PRN SL 12/05/24 20:00 Morphine Sulfate 2 mg Q30M PRN IV 12/05/24 20:00 Furosemide 40 mg Q8HR IV 12/05/24 22:00 12/06/24 06:00 40 MG Diagnostic Test (Pha) 1 strip ACHS 12/05/24 22:00 12/06/24 06:34 1 STRIP Insulin Human Regular AC SC 12/06/24 07:00 12/06/24 06:34 16 UNITS Insulin Human Regular HS SC 12/05/24 22:00 12/06/24 01:52 8 UNITS Dextrose 50 ml UD PRN IV 12/05/24 20:00 Hydralazine HCl 20 mg Q6HP PRN IV 12/06/24 06:15 12/06/24 07:55 20 MG Metoprolol Tartrate 50 mg BID PO 12/06/24 10:00 12/06/24 10:47 50 MG Laboratory Results Laboratory Tests 12/06/24 02:40 Chemistry Test 12/05/24 18:20 12/06/24 02:40 Albumin 4.0 g/dL (3.2-4.8) 3.9 g/dL (3.2-4.8) Calcium Level 9.0 mg/dL (8.7-10.4) 8.7 mg/dL (8.7-10.4) Total Protein 6.5 g/dL (5.7-8.2) 6.4 g/dL (5.7-8.2) Cardiac Markers Test 12/05/24 18:20 B-Type Natriuretic Peptide 168.91 pg/mL (0-100) LFT Test 12/05/24 18:20 12/06/24 02:40 Alanine Aminotransferase (ALT) 19 U/L (7-40) 19 U/L (7-40) Alkaline Phosphatase 138 U/L (46-116) H 116 U/L (46-116) Aspartate Amino Transferase (AST) 18 U/L (13-40) 18 U/L (13-40) Total Bilirubin 0.5 mg/dL (0.2-1.0) 0.7 mg/dL (0.2-1.0) Urinalysis Test 12/05/24 19:01 Urine Color Light-yellow (Yellow) Urine Clarity Clear (Clear) Urine pH 6.0 (5.0-9.0) Urine Specific [place] 1.034 (1.001-1.035) Urine Protein 3+ (Negative) H Urine Ketones Negative (Negative) Urine Blood 1+ /uL (Negative) H Urine Nitrite Negative (Negative) Urine Bilirubin Negative (Negative) Urine Urobilinogen Normal mg/dL (Negative) Urine Leukocyte Esterase Negative /uL (Negative) Urine RBC 3 /hpf (0 - 3) Urine Microscopic WBC 3 /HPF (0-3) Urine Squamous Epithelial Cells None seen /hpf (<5) Urine Bacteria None seen /hpf (None Seen) Urine Yeast (Budding) Occasional /hpf (None Urine Glucose 4+ mg/dL (Normal) H Assessment/Plan Assessment/Plan (1) CHF exacerbation (2) Hypertensive urgency (3) Noncompliance with medication regimen (4) Hyperglycemia due to type 2 diabetes mellitus (5) Uncontrolled diabetes mellitus (6) Pleural effusion Continuing current management. Continuing with IV Lasix. Continuing with sliding scale insulin. Continuing with hypertensive medication. Advised to compliant with medication. This medical document was created using an electronic medical record system with M*M [employer]rency direct computerized dictation system. Although this document has been carefully reviewed, there may still be some phonetic and typographical errors. These areas are purely typographical due to imperfections of the software programs, and do not reflect any compromise in the patient's medical care. Plan discussed with: Patient Date of Service: Dec 06, 2024 Billing Provider: BAYRON PARKER MD Common Visit Codes: [id number] INP/OBS CARE(HIGH) BAYRON PARKER MD Dec 06, 2024 11:41
[2024-12-06] MEDS ORDERED: HALOPERIDOL LACTATE 5 MG/ML INJ VIAL IM ONE (18:00)
[2024-12-06 19:30] VITALS: PULSE 87; RESP 12; O2SAT 94
[2024-12-06] MEDS: POTASSIUM EFFERVESENT TAB 25 MEQ PO ONE (22:28)
[2024-12-07] VITALS (12 sets, daily range): BP systolic 102–182; BP diastolic 54–88; PULSE 70–120; RESP 17–22; TEMP 97.5–98.3; O2SAT 94–97
[2024-12-07 04:30] LABS: Basophils # (auto) 0.1 10 ^3/uL (0-0.2); Basophils % (auto) 0.7 % (0.0-2.0); Eosinophils # (auto) 0.4 10 ^3/uL (0-0.8); Eosinophils % (auto) 4.2 % (0.0-7.0); Hematocrit 35.9 % (41.0-53.0); Hemoglobin 11.8 g/dL (13.5-17.5); Lymphocytes # (auto) 2.9 10 ^3/uL (0.4-5.4); Lymphocytes % (auto) 33.3 % (10.0-50.0); Mean Corpuscular Hemoglobin 27.3 pg (28.0-32.0); Mean Corpuscular Hgb Conc. 32.8 g/dL (32.0-36.0); Mean Corpuscular Volume 83.4 fL (80.0-100.0); Monocytes # (auto) 0.6 10 ^3/uL (0-1.3); Monocytes % (auto) 6.9 % (0.0-12.0); Neutrophils # (auto) 4.7 10 ^3/uL (1.6-8.6); Neutrophils % (auto) 54.9 % (37.0-80.0); Nucleated Red Blood Cells % 0.1 %; Platelet Count (auto) 245 10^3/uL (140-450); Red Cell Distribution Width 15.2 % (11.8-14.3); White Blood Cell 8.6 10^3/uL (4.4-10.8)
[2024-12-07 04:51] LABS: Alanine Aminotransferase 18 U/L (7-40); Albumin 3.5 g/dL (3.2-4.8); Alkaline Phosphatase 83 U/L (46-116); Anion Gap 11 (5-15); Aspartate Aminotransferase 19 U/L (13-40); BUN/Creatinine Ratio 9.3 (10.0-20.0); Bilirubin, Total 0.6 mg/dL (0.2-1.0); Blood Urea Nitrogen 15 mg/dL (9-23); Calcium 8.8 mg/dL (8.7-10.4); Carbon Dioxide 29 mmol/L (20-31); Chloride 103 mmol/L (98-107); Sodium 143 mmol/L (136-145)
[2024-12-07 04:57] LABS: Glucose 260 mg/dL (74-106); Potassium 2.8 mmol/L (3.5-5.1); Total Protein 5.6 g/dL (5.7-8.2)
--- NOTE | 2024-12-07 11:37 | DVHSR ---
APPROVED REPORT EXAM: LIMITED Two-dimensional and M-mode echocardiogram with Doppler and color Doppler. Blood Pressure: 168/82 mmHg INDICATION CHF Exacerbation RISK FACTORS Obesity: Height: 5' 9", Weight: 252 DIMENSIONS LVDd4.5 (3.8-5.7cm)LA (2D)4.6 (1.9-4.0cm)Aortic Root3.5 (2.0-3.7cm) LVDs3.1 (2.5-4.0cm)LA (MM) (1.9-4.0cm)Aortic Cusp Exc1.7 (1.5-2.0cm) EF (%) 58.0 (55-70%)Rt. Atrium5.1 (1.9-4.0cm)Asc. Aorta cm IVSd1.5 (0.7-1.1cm)RV (D) (1.8-2.4cm) PWd1.6 (0.7-1.1cm) Mitral Valve MitralMitral Stenosis E wave0.80m/sMV Mean GR.mmHg A wave0.90m/sMV Peak GR.mmHg E/A ratio0.92D MVAcm2 Aortic Valve Aortic ValveAortic Stenosis V10.80m/Jorge Mean GR.7mmHg V21.70m/Jorge Peak GR.12mmHg LVOT Diameter2.3 (1.8-2.4cm)Doppler AVA1.95cm2 Pulmonic Valve V21.00m/s Other Information Quality : Technically LimitedRhythm : Technically limited study due to body habitus. Conclusion lvef 55% by visual estimate normal rv function left atrium enlarged normal pericardium no severe valve abnormalites noted
--- NOTE | 2024-12-07 14:26 | DVHPN2 ---
Reviewed: Care Plan, H&P, Labs, Medications, Previous Orders Changes from previous H/P or p: No Changes General: Per HPI Objective Vitals Vital Signs Date Time Temp Pulse Resp B/P (MAP) Pulse Ox O2 Delivery O2 Flow Rate FiO2 12/07/24 12:57 94 18 126/54 (78) 97 12/07/24 09:03 97.9 97.9 12/07/24 08:10 Room Air* 0 21 Intake/Output Intake and Output 12/07/24 07:00 Intake Total 240 ml Output Total 0 ml Balance 240 ml Intake Oral 240 ml Output Urine Total 0 ml Medications Current Medications Medications Dose Ordered Sig/Peter Route Start Time Stop Time Status Last Admin Dose Admin Nitroglycerin 0.4 mg Q5MINP PRN SL 12/05/24 20:00 Morphine Sulfate 2 mg Q30M PRN IV 12/05/24 20:00 Furosemide 40 mg Q8HR IV 12/05/24 22:00 12/07/24 06:17 40 MG Diagnostic Test (Pha) 1 strip ACHS 12/05/24 22:00 12/07/24 11:23 1 STRIP Insulin Human Regular AC SC 12/06/24 07:00 12/07/24 11:38 16 UNITS Insulin Human Regular HS SC 12/05/24 22:00 12/06/24 21:55 6 UNITS Dextrose 50 ml UD PRN IV 12/05/24 20:00 Hydralazine HCl 20 mg Q6HP PRN IV 12/06/24 06:15 12/07/24 11:39 20 MG Metoprolol Tartrate 50 mg BID PO 12/06/24 10:00 12/07/24 09:26 50 MG Laboratory Results Laboratory Tests 12/07/24 03:35 Chemistry Test 12/07/24 03:35 Albumin 3.5 g/dL (3.2-4.8) Calcium Level 8.8 mg/dL (8.7-10.4) Total Protein 5.6 g/dL (5.7-8.2) L LFT Test 12/07/24 03:35 Alanine Aminotransferase (ALT) 18 U/L (7-40) Alkaline Phosphatase 83 U/L (46-116) Aspartate Amino Transferase (AST) 19 U/L (13-40) Total Bilirubin 0.6 mg/dL (0.2-1.0) Urinalysis Test 12/05/24 19:01 Urine Color Light-yellow (Yellow) Urine Clarity Clear (Clear) Urine pH 6.0 (5.0-9.0) Urine Specific [place] 1.034 (1.001-1.035) Urine Protein 3+ (Negative) H Urine Ketones Negative (Negative) Urine Blood 1+ /uL (Negative) H Urine Nitrite Negative (Negative) Urine Bilirubin Negative (Negative) Urine Urobilinogen Normal mg/dL (Negative) Urine Leukocyte Esterase Negative /uL (Negative) Urine RBC 3 /hpf (0 - 3) Urine Microscopic WBC 3 /HPF (0-3) Urine Squamous Epithelial Cells None seen /hpf (<5) Urine Bacteria None seen /hpf (None Seen) Urine Yeast (Budding) Occasional /hpf (None Urine Glucose 4+ mg/dL (Normal) H Assessment/Plan Assessment/Plan (1) CHF exacerbation (2) Hypertensive urgency (3) Noncompliance with medication regimen (4) Hyperglycemia due to type 2 diabetes mellitus (5) Uncontrolled diabetes mellitus (6) Pleural effusion Continuing current management. Continuing with IV Lasix. Continuing with sliding scale insulin. Continuing with hypertensive medication. Advised to compliant with medication. This medical document was created using an electronic medical record system with [employer] direct computerized dictation system. Although this document has been carefully reviewed, there may still be some phonetic and typographical errors. These areas are purely typographical due to imperfections of the software programs, and do not reflect any compromise in the patient's medical care. Plan discussed with: Patient My Orders Orders - NICO MTZ DO Procedure Category Date Status Time Potassium Er Tablet PHA 12/07/24 Transmitted (Klor-Con Tablet) 14:15 Date of Service: Dec 07, 2024 Billing Provider: NICO MTZ DO Common Visit Codes: [id number] INP/OBS CARE(HIGH) NICO MTZ DO Dec 07, 2024 14:26
[2024-12-07] MEDS: POTASSIUM CHL 20 Meq TABLET PO ONE (14:47)
[2024-12-08] VITALS (10 sets, daily range): BP systolic 118–190; BP diastolic 54–79; PULSE 69–76; RESP 16–20; TEMP 97.7–98.3; O2SAT 92–100
--- NOTE | 2024-12-08 00:08 | DVHINCON2 ---
DATE OF CONSULTATION: 12/07/2024 REFERRING PHYSICIAN: Dr. Quevedo. CONSULTING PHYSICIAN: Dr. Stacey Latif. INDICATIONS: Leg swelling, shortness of breath, uncontrolled hypertension. HISTORY OF PRESENT ILLNESS: The patient is a 74-year-old male with a history of diabetes, hypertension, obesity, was sent to the hospital from his primary care physician's office after he was noted to have markedly elevated blood pressure. The patient has been complaining of shortness of breath and lower extremity edema. He also gives history of orthopnea. The patient said he has not been taking his medications as prescribed. The patient denies prior history of heart disease known to him. PAST MEDICAL HISTORY: * Hypertension. * Stroke. * Diabetes. * Obesity. MEDICATIONS: Per med rec. ALLERGIES: PENICILLIN. PHYSICAL EXAMINATION: GENERAL: Alert and awake, in no form of cardiopulmonary distress. VITAL SIGNS: Blood pressure 132/64, pulse 94 per minute, saturation 97%. HEENT: No carotid bruits. No jugular venous distention. CHEST: Bilateral air entry. . CARDIOVASCULAR: ____ palpable. Normal S1, S2. EXTREMITIES: Bilateral pitting edema. DIAGNOSTIC DATA: White count 9, hemoglobin 13, platelets 246. Sodium 143, potassium 2.8, creatinine is 1.6. Troponin is negative. ASSESSMENT: * Decompensated heart failure, possibly newly diagnosed. * Hypokalemia. * Chronic kidney disease. * Hypertensive urgency. * Diabetes. * Hypertension. * Obesity. * Noncompliance to medication. RECOMMENDATIONS: * Agree with diuresis. * Continue IV Lasix. * ____. * Supplement potassium. * Keep potassium above 4 and magnesium above 2. * Monitor electrolytes and renal function closely. * We will review echo once completed. * Advised to comply with home medications. * Continue telemetry monitoring. Thank you for allowing me to partake in the care of this patient. MD TRINH Flores/SERA/ALVA/RENETTA TID: [id number] RECEIPT: [id number]
[2024-12-08 16:46] LABS: Chloride 99 mmol/L (98-107); Sodium 140 mmol/L (136-145)
[2024-12-08 16:47] LABS: Anion Gap 10 (5-15)
[2024-12-08 16:48] LABS: Calcium 9.2 mg/dL (8.7-10.4)
[2024-12-08 16:52] LABS: BUN/Creatinine Ratio 11.4 (10.0-20.0); Blood Urea Nitrogen 18 mg/dL (9-23)
[2024-12-08 16:54] LABS: Carbon Dioxide 31 mmol/L (20-31); Glucose 343 mg/dL (74-106); Potassium 3.1 mmol/L (3.5-5.1)
[2024-12-09] VITALS (8 sets, daily range): BP systolic 132–176; BP diastolic 51–78; PULSE 65–93; RESP 18–20; TEMP 97.4–98.3; O2SAT 93–98
[2024-12-09] MEDS: INSULIN LANTUS (GLARGINE) 1 /0.01ml (100units/ml) SC SCH (06:07)
--- NOTE | 2024-12-09 14:12 | DVHPN2 ---
Reviewed: Care Plan, H&P, Labs, Medications, Previous Orders Changes from previous H/P or p: No Changes General: Per HPI Objective Vitals Vital Signs Date Time Temp Pulse Resp B/P (MAP) Pulse Ox O2 Delivery O2 Flow Rate FiO2 12/09/24 13:00 97.7 65 20 132/55 (80) 98 97.7 12/09/24 08:00 Room Air* 0 21 Intake/Output Intake and Output 12/09/24 07:00 Intake Total 1350 ml Balance 1350 ml Intake Oral 1350 ml # Voids 10 # Bowel Movements 1 General Appearance: Alert, Oriented X3, Cooperative Cardiovascular: Regular rate, Normal S1, Normal S2 Medications Current Medications Medications Dose Ordered Sig/Peter Route Start Time Stop Time Status Last Admin Dose Admin Nitroglycerin 0.4 mg Q5MINP PRN SL 12/05/24 20:00 Morphine Sulfate 2 mg Q30M PRN IV 12/05/24 20:00 Furosemide 40 mg Q8HR IV 12/05/24 22:00 12/09/24 06:08 40 MG Diagnostic Test (Pha) 1 strip ACHS 12/05/24 22:00 12/09/24 11:12 1 STRIP Insulin Human Regular AC SC 12/06/24 07:00 12/09/24 11:25 16 UNITS Insulin Human Regular HS SC 12/05/24 22:00 12/08/24 22:13 6 UNITS Dextrose 50 ml UD PRN IV 12/05/24 20:00 Hydralazine HCl 20 mg Q6HP PRN IV 12/06/24 06:15 12/08/24 15:07 20 MG Metoprolol Tartrate 50 mg BID PO 12/06/24 10:00 12/09/24 11:12 50 MG Insulin Glargine 10 units QAM SC 12/09/24 07:00 12/09/24 06:07 10 UNITS Laboratory Results Laboratory Tests 12/07/24 03:35 12/08/24 15:05 Chemistry Test 12/08/24 15:05 Calcium Level 9.2 mg/dL (8.7-10.4) Urinalysis Test 12/05/24 19:01 Urine Color Light-yellow (Yellow) Urine Clarity Clear (Clear) Urine pH 6.0 (5.0-9.0) Urine Specific [place] 1.034 (1.001-1.035) Urine Protein 3+ (Negative) H Urine Ketones Negative (Negative) Urine Blood 1+ /uL (Negative) H Urine Nitrite Negative (Negative) Urine Bilirubin Negative (Negative) Urine Urobilinogen Normal mg/dL (Negative) Urine Leukocyte Esterase Negative /uL (Negative) Urine RBC 3 /hpf (0 - 3) Urine Microscopic WBC 3 /HPF (0-3) Urine Squamous Epithelial Cells None seen /hpf (<5) Urine Bacteria None seen /hpf (None Seen) Urine Yeast (Budding) Occasional /hpf (None Urine Glucose 4+ mg/dL (Normal) H Labs and/or images reviewed: Labs reviewed by me, Image(s) reviewed by me Assessment/Plan Assessment/Plan (1) CHF exacerbation (2) Hypertensive urgency (3) Noncompliance with medication regimen (4) Hyperglycemia due to type 2 diabetes mellitus (5) Uncontrolled diabetes mellitus (6) Pleural effusion Continuing current management. Continuing with IV Lasix. Continuing with sliding scale insulin. Continuing with hypertensive medication. Advised to compliant with medication. Plan discussed with: Patient My Orders Orders - NICO MTZ DO Procedure Category Date Status Time *Dr. Miguel Kohli CONS 12/08/24 Transmitted 14:37 Insulin Lantus PHA 12/09/24 In Process (Glargine) (Lantus) 07:00 Date of Service: Dec 08, 2024 Billing Provider: NICO MTZ DO Common Visit Codes: [id number] INP/OBS CARE(HIGH) NICO MTZ DO Dec 09, 2024 14:12
[2024-12-10 01:00] VITALS: BP 153/65; PULSE 68; RESP 19; TEMP 97.9; O2SAT 95
[2024-12-10 05:00] VITALS: BP 163/66; PULSE 67; RESP 18; TEMP 98.1; O2SAT 94
[2024-12-10 08:00] VITALS: PULSE 74; PULSE 81; RESP 20; O2SAT 94
[2024-12-10 09:00] VITALS: BP 129/54; PULSE 81; RESP 20; TEMP 98.3; O2SAT 94
[2024-12-10 13:00] VITALS: BP 153/77; PULSE 73; RESP 20; TEMP 99; O2SAT 98
[2024-12-10 14:14] VITALS: BP 129/54; PULSE 81; RESP 20; TEMP 98.3; O2SAT 94
--- NOTE | 2024-12-10 20:52 | DVHDS2 ---
Discharge Summary Date of Admission Dec 05, 2024 at 19:57 Date of Discharge: Dec 06, 2024 Labs/Diagnostic Data: Laboratory Results Test 12/10/24 11:14 12/08/24 15:05 12/07/24 03:35 12/05/24 21:18 POC Glucose 370 mg/dl (70-106) Sodium Level 140 mmol/L (136-145) Potassium Level 3.1 mmol/L (3.5-5.1) Chloride Level 99 mmol/L (98-107) Carbon Dioxide Level 31 mmol/L (20-31) Anion Gap 10 (5-15) Blood Urea Nitrogen 18 mg/dL (9-23) Creatinine 1.58 mg/dL (0.700-1.30) Glomerular Filtration Rate Calc 45 mL/min (>90) BUN/Creatinine Ratio 11.4 (10.0-20.0) Serum Glucose 343 mg/dL (74-106) Calcium Level 9.2 mg/dL (8.7-10.4) White Blood Count 8.6 10^3/uL (4.4-10.8) Red Blood Count 4.30 10^6/uL (4.5-5.90) Hemoglobin 11.8 g/dL (13.5-17.5) Hematocrit 35.9 % (41.0-53.0) Mean Corpuscular Volume 83.4 fL (80.0-100.0) Mean Corpuscular Hemoglobin 27.3 pg (28.0-32.0) Mean Corpuscular Hemoglobin Concent 32.8 g/dL (32.0-36.0) Red Cell Distribution Width 15.2 % (11.8-14.3) Platelet Count 245 10^3/uL (140-450) Mean Platelet Volume 8.8 fL (6.9-10.8) Neutrophils (%) (Auto) 54.9 % (37.0-80.0) Lymphocytes (%) (Auto) 33.3 % (10.0-50.0) Monocytes (%) (Auto) 6.9 % (0.0-12.0) Eosinophils (%) (Auto) 4.2 % (0.0-7.0) Basophils (%) (Auto) 0.7 % (0.0-2.0) Neutrophils # (Auto) 4.7 10 ^3/uL (1.6-8.6) Lymphocytes # (Auto) 2.9 10 ^3/uL (0.4-5.4) Monocytes # (Auto) 0.6 10 ^3/uL (0-1.3) Eosinophils # (Auto) 0.4 10 ^3/uL (0-0.8) Basophils # (Auto) 0.1 10 ^3/uL (0-0.2) Nucleated Red Blood Cells 0.1 % Total Bilirubin 0.6 mg/dL (0.2-1.0) Aspartate Amino Transferase (AST) 19 U/L (13-40) Alanine Aminotransferase (ALT) 18 U/L (7-40) Alkaline Phosphatase 83 U/L (46-116) Total Protein 5.6 g/dL (5.7-8.2) Albumin 3.5 g/dL (3.2-4.8) Troponin I High Sensitivity 17 ng/L (</=54) Test 12/05/24 19:01 12/05/24 18:20 Urine Color Light-yellow (Yellow) Urine Clarity Clear (Clear) Urine pH 6.0 (5.0-9.0) Urine Specific [place] 1.034 (1.001-1.035) Urine Protein 3+ (Negative) Urine Ketones Negative (Negative) Urine Blood 1+ /uL (Negative) Urine Nitrite Negative (Negative) Urine Bilirubin Negative (Negative) Urine Urobilinogen Normal mg/dL (Negative) Urine Leukocyte Esterase Negative /uL (Negative) Urine RBC 3 /hpf (0 - 3) Urine Microscopic WBC 3 /HPF (0-3) Urine Squamous Epithelial Cells None seen /hpf (<5) Urine Bacteria None seen /hpf (None Seen) Urine Yeast (Budding) Occasional /hpf (None Urine Glucose 4+ mg/dL (Normal) B-Type Natriuretic Peptide 168.91 pg/mL (0-100) Other Laboratory Tests 12/08/24 15:05 12/07/24 03:35 Brief Hx & Hospital Course: (1) CHF exacerbation (2) Hypertensive urgency (3) Noncompliance with medication regimen (4) Hyperglycemia due to type 2 diabetes mellitus (5) Uncontrolled diabetes mellitus (6) Pleural effusion Continuing current management. Continuing with IV Lasix. Continuing with sliding scale insulin. Continuing with hypertensive medication. Advised to compliant with medication. discharged to home with self care Condition at Discharge: Fair Final Diagnosis/Problems List chf dm noncompliance Discharge Disposition: Home Discharge Instruct/Medications Diet: Cardiac 2g Na,low cholest Activity: No Restrictions, As Tolerated Follow Up/Referral: pcp cardio Discharge Statement: "Patient was advised to return to the ER or call 911 if any headaches, dizziness, shortness of breath, chest pain, abdominal pain, bleeding, fevers, or worsening of medical condition. Patient was counseled about treatment plan, medications, possible side effects, patientverbalized understanding. All questions were answered to the best of my ability. This discharge took greater then 30 minutes in planning, reviewing documentation, counseling the patient, and discussing with other team members." ASSESSMENT ASSESSMENT Assessment chf dm noncompliance Date of Service: Dec 10, 2024 Billing Provider: NICO MTZ DO Common Visit Codes: [id number] DISCH DAY >30min NICO MTZ DO Dec 10, 2024 20:52
== END 2024-12-10 15:29 | disposition home or self-care (01) | DRG 291 ==
LOC: ER 17:37 → OVERFLOW 19:57 → TELE-WESTW 12-06 23:58
PROVIDERS: ADMIT Internal Medicine; ATTEND Internal Medicine
DX: I13.0 Hypertensive heart and chronic kidney disease with heart failure and stage 1 through stage 4 chronic kidney disease, or unspecified chronic kidney disease (principal); I50.33 Acute on chronic diastolic (congestive) heart failure; I16.0 Hypertensive urgency; E87.6 Hypokalemia; N18.9 Chronic kidney disease, unspecified; E11.22 Type 2 diabetes mellitus with diabetic chronic kidney disease; E11.65 Type 2 diabetes mellitus with hyperglycemia; E66.9 Obesity, unspecified; Z91.148 Patient's other noncompliance with medication regimen for other reason; Z86.73 Personal history of transient ischemic attack (TIA), and cerebral infarction without residual deficits; Z88.0 Allergy status to penicillin; Z79.899 Other long term (current) drug therapy; Z79.4 Long term (current) use of insulin; Z79.82 Long term (current) use of aspirin; Z91.128 Patient's intentional underdosing of medication regimen for other reason; Z68.35 Body mass index [BMI] 35.0-35.9, adult
CPT/HCPCS: 36415; 71045; 80048; 80053; 81001; 82962; 83880; 84484; 85025; 93005; 93306; 99291; G0378; J1815

== ENCOUNTER 2025-05-19 08:17 | Emergency (ER) | payer MEDICARE, OTHER ==
[~2025-05-19] VITALS: Ht 177.8 cm; Wt 105.6 kg
--- NOTE | 2025-05-19 08:52 | ED.PDOC ---
Musculoskeletal HPI Comments 54-year-old male presented to the emergency department because of falling injuries and hurt his knee left side it is still swollen and tender Chief Complaint: Fall Injury Time Seen by MD: 08:25 Primary Care Provider: KAELYN Reviewed Notes: Nurses Notes, Medications, Allergies Allergies: Coded Allergies: Penicillins (Verified Allergy, Unknown, 09/12/19) Home Meds Active Scripts Naproxen (Naproxen) 375 Mg Tab, 375 MG PO TID for 10 Days, #30 TAB Prov:ALEJANDRA MOORE MD 05/19/25 Clonidine Hydrochloride (Clonidine Hcl) 0.1 Mg Tab, 0.1 MG PO DAILY for 7 Days, #7 MG Prov:MASSIEL GONZALEZ MD 02/26/24 Insulin Pen Needle (Bd Pen Needle/Yahaira/Ultra) 32 Gx4mm Mis, GX4MM XX, #100 3 Refills Prov:JORGE ARROYO DO 02/22/24 Blood Glucose Monitoring Suppl (D-Care Glucometer Kit/Glu W/Device) 1 Kit Kit, KIT XX, #1 Prov:JORGE ARROYO DO 02/22/24 Insulin Lispro (Humalog Kwikpen) 100 Unit/Ml Inj, 100 UNIT SC tid ac for 30 Days, #1 INJ 1 Refill Take 3 units prior to each meal (3x per day, breakfast, lunch, dinner). Do not take if blood sugar less than 130. Prov:JORGE ARROYO DO 02/22/24 Insulin Glargine (Basaglar Kwikpen) 100 Unit/Ml Inj, 100 UNIT SC QHSP PRN for 30 Days, #5 UNIT 2 Refills Inject 5 units glargine at bedtime. Prov:JORGE ARROYO DO 02/22/24 Losartan Potassium (Losartan Potassium) 100 Mg Tab, 1 TAB PO DAILY, #90 TAB 1 Refill Prov:JORGE ARROYO DO 02/22/24 Metformin Hydrochloride (Metformin Hcl) 500 Mg Tab, 1000 MG PO BIDAC for 90 Days, #90 TAB 2 Refills Prov:JORGE ARROYO DO 02/22/24 Clopidogrel Bisulfate (Plavix) 75 Mg Tab, 75 MG PO DAILY for 20 Days, #20 TAB 0 Refills Start taking on 02/21. Prov:JORGE ARROYO DO 02/21/24 Atorvastatin Calcium (ATORVASTATIN CALCIUM) 80 Mg Tab, 80 MG PO DAILY for 90 Days, #90 TAB 2 Refills Prov:JORGE ARROYO DO 02/21/24 Aspirin (Aspirin Low Dose) 81 Mg Tab, 81 MG PO DAILY for 90 Days, #90 TAB 3 Refills Prov:JORGE ARROYO DO 02/21/24 Reported Medications Metoprolol Tartrate (Metoprolol Tartrate) 50 Mg Tab, 50 MG PO BID for 30 Days, MG 02/20/24 Glipizide (Glipizide) 10 Mg Tab, 1 TAB PO BID, #60 TAB 5 Refills 10/24/23 Information Source: Patient Mode of Arrival: Ambulatory Location: Left Extremity Location: Knee Timing: Hours Severity: Moderate Able to Move Extremity: Yes Bear Weight: Fully Pain: Moderate Hand Dominance: Right Mechanism: Twisting Circumstances: Fall Onset of Symptoms: After Trauma Symptoms: Swelling, Pain DVT Risk Factors: NONE Associated signs and symptoms: Swelling, Knee pain Past Medical History PAST MEDICAL HISTORY: CVA, DM, High Lipids, HTN Surgical History: Denies all surgeries Family History Family History: Unknown Social History Smoker: Non-Smoker Alcohol: Rarely Drugs: Denies Drug Use Lives In: Home Constitutional: denies: chills, diaphoresis, fatigue, fever, malaise, sweats, weakness, others EENTM: denies: blurred vision, double vision, ear bleeding, ear discharge, ear drainage, ear pain, ear ringing, eye pain, eye redness, hearing loss, mouth pain, mouth swelling, nasal discharge, nose bleeding, nose congestion, nose pain, photophobia, tearing, throat pain, throat swelling, voice changes, others Respiratory: denies: cough, hemoptysis, orthopnea, SOB at rest, shortness of breath, SOB with excertion, stridor, wheezing, others Cardiovascular: denies: chest pain, dizzy spells, diaphoresis, Dyspnea on exertion, edema, irregular heart beat, left arm pain, lightheadedness, palpitations, PND, syncope, others Gastrointestinal: denies: abdomen distended, abdominal pain, blood streaked bowels, constipated, diarrhea, dysphagia, difficulty swallowing, hematemesis, melena, nausea, poor appetite, poor fluid intake, rectal bleeding, rectal pain, vomiting, others Genitourinary: denies: burning, dysuria, flank pain, frequency, hematuria, incontinence, penile discharge, penile sore, pain, testicle pain, testicle swelling, urgency, others Neurological: denies: dizziness, fainting, headache, left sided numbness, left sided weakness, numbness, paresthesia, pre-existing deficit, right sided numbness, right sided weakness, seizure, speech problems, tingling, tremors, weakness, others Musculoskeletal: reports: joint pain, joint swelling; denies: back pain, gout, muscle pain, muscle stiffness, neck pain, others Integumetry: reports: bruises; denies: change in color, change in hair/nails, dryness, laceration, lesions, lumps, rash, wounds, others Allergic/Immunocompromised: denies: Difficulty Healing, Frequent Infections, Hives, Itching, others Hematologic/Lymphatic: denies: anemia, blood clots, easy bleeding, easy bruising, swollen glands, others Endocrine: denies: excessive hunger, excessive sweating, excessive thirst, excessive urination, flushing, intolerance to cold, intolerance to heat, un explained weight gain, unexplained weight loss, others Psychiatric: denies: anxiety, bipolar disorder, depression, hopeless, panic disorder, schizophrenia, sleepless, suicidal, others All Other Systems: Reviewed and Negative Physical Exam General Appearance: Mild Distress, Obese HEENT: Normal ENT Inspection, Pharynx Normal, TMs Normal Neck: Full Range of Motion, Non-Tender, Normal, Normal Inspection Respiratory: Chest Non-Tender, Lungs Clear, No Accessory Muscle Use, No Respiratory Distress, Normal Breath Sounds Cardiovascular: No Edema, No JVD, No Murmur, No Gallop, Normal Peripheral Pulses, Regular Rate/Rhythm Breast Exam: Deferred Gastrointestinal: No Organomegaly, Non Tender, No Pulsatile Mass, Normal Bowel Sounds, Soft, Other (Obesity) Genitalia: Deferred Pelvic: Deferred Rectal: Deferred Extremities: Decreased range of motion, Swelling, Tender Musculoskeletal : Location: Left Extremity Location: Knee Apperance: Swelling, Limited ROM, Tenderness: Moderate Neurologic: Alert, filament coil winder II-XII nml as Tested, No Motor Deficits, Normal Affect, Normal Mood, No Sensory Deficits Cerebellar Function: Normal Reflexes: Normal Skin: Bruises, Dry, Normal Color, Warm Peripheral Pulses: 1+ carotid (R), 1+ carotid (L) Lymphatic: No Adenopathy Was a procedure done? Was a procedure done?: No Differential Diagnosis EXT Differential Diagnosis: Fracture, Sprain, DJD, Contusion, Arthritis X-Ray, Labs, Meds, VS Vital Signs Date Time Temp Pulse Resp B/P (MAP) Pulse Ox O2 Delivery O2 Flow Rate FiO2 05/19/25 09:25 74 16 96 Room Air 05/19/25 09:25 97.6 74 16 167/74 (105) 96 97.6 05/19/25 08:17 98.0 74 18 139/76 98 98.0 [facility] [id number] [place] [address] Ph: [phone] DIAGNOSTIC IMAGING Diagnostic Imaging Report : [id number] Signed PATIENT: KARO VAN ACCT: [id number] UNIT: [id number] : 1950 LOC: ER ROOM / BED: / AGE / SEX: 74 / M ADM STATUS: REG ER SERVICE 2 ORDERING PHYSICIAN: ALEJANDRA MOORE MD PROCEDURE(s): LKNE3 - L KNEE 3V XRAY REASON: fall ORDER NUMBER(s): [id number], ACCESSION NUMBER(s): [id number] CLINICAL INDICATION: fall TECHNIQUE: 3 views XY L KNEE 3V XRAY Comparison: None FINDINGS/IMPRESSION: : Moderate joint effusion Moderate degenerative changes No fracture ATED BY: JONI LEDESMA MD DICTATED DATE/TIME: 05/19/25911 SIGNED BY: JONI LEDESMA MD SIGNED DATE/TIME: 05/19/25911 CC: X-Ray, Labs, Meds, VS Comment Course in the emergency department eventful Patient came in for a knee injury after a fall X-ray shows joint effusion DJD but no fracture Patient will have an Zeus wrap he does use a cane and we will give him some anti- inflammatory Time of 1ST Reevaluation: 08:51 Reevaluation 1ST: Unchanged Reevaluation 2ND: Improved Consultation: PCP Patient Education/Counseling: Diagnosis, Treatment, Prognosis, Need For Follow Up Family Education/Counseling: Diagnosis, Treatment, Prognosis, Need For Follow Up Departure 1 Departure Time of Disposition: 09:43 Impression: Primary Impression: Fall at home Qualified Codes: W19.XXXA - Unspecified fall, initial encounter; Y92.009 - Unspecified place in unspecified non-institutional (private) residence as the place of occurrence of the external cause Additional Impressions: Contusion of right knee Effusion, right knee Disposition: HOME / SELF CARE / HOMELESS Condition: Fair Additional Instructions: Local heat and follow up with your PCP e-Prescriptions Naproxen (Naproxen) 375 Mg Tab 375 MG PO TID for 10 Days, #30 TAB Prov: ALEJANDRA MOORE MD 05/19/25 Discharged With: Self Critical Care Note Critical Care Time?: No Stability Stability form required: No Heart Score Heart Score: Heart Score Response (Comments) Value History N/A 0 EKG N/A 0 Age >65 2 Risk Factors >3 or Hx ASHD 2 Troponin N/A 0 Total 4 I personally scribed for ALEJANDRA MOORE MD ([email or web address]) on 05/19/25 at 10:04. Electronically submitted by Haim Briceno ([email or web address]). ALEJANDRA MOORE MD May 19, 2025 08:52
--- NOTE | 2025-05-19 09:14 | DVH ---
CLINICAL INDICATION: fall TECHNIQUE: 3 views XY L KNEE 3V XRAY Comparison: None FINDINGS/IMPRESSION: : Moderate joint effusion Moderate degenerative changes No fracture
[2025-05-19 09:25] VITALS: BP 167/74; PULSE 74; RESP 16; TEMP 97.6; O2SAT 96
[2025-05-19] MEDS ORDERED: NAPR-957 PO (09:45)
== END 2025-05-19 10:02 | disposition home or self-care (01) ==
LOC: ER 08:17
DX: S80.01XA Contusion of right knee, initial encounter (principal); I10 Essential (primary) hypertension; E11.9 Type 2 diabetes mellitus without complications; Z79.82 Long term (current) use of aspirin; Z79.84 Long term (current) use of oral hypoglycemic drugs; Z79.899 Other long term (current) drug therapy; Z86.73 Personal history of transient ischemic attack (TIA), and cerebral infarction without residual deficits; Z88.0 Allergy status to penicillin; W18.39XA Other fall on same level, initial encounter; Y93.89 Activity, other specified; Y92.89 Other specified places as the place of occurrence of the external cause; Y99.8 Other external cause status
CPT/HCPCS: 73562